=== PATIENT | female | born 1960 | race Caucasian/White ===

== ENCOUNTER 2018-08-22 14:04 | Outpatient (CLI) | payer OTHER ==
--- NOTE | 2018-08-23 03:22 | XRAY Report ---
Reason: NONSPECIFIC REACTION TO TUBERCULIN W/O ACTIVE TB Procedure Date: 08/22/2018 Accession Number: [id number] / [id number] Procedure: XR - Chest 2 View X-Ray CPT Code: 18318 FULL RESULT: EXAM: CHEST RADIOGRAPHY EXAM DATE: 08/22/2018 02:22 PM. CLINICAL HISTORY: NONSPECIFIC REACTION TO TUBERCULIN W/O ACTIVE TB. COMPARISON: None. TECHNIQUE: 2 views. FINDINGS: Lungs/Pleura: No focal opacities evident. No pleural effusion. No pneumothorax. Normal volumes. Mediastinum: Heart and mediastinal contours are unremarkable. Other: None. IMPRESSION: Normal 2-view chest radiography. No evidence of active tuberculosis. RADIA
== END 2018-08-22 14:05 | disposition home or self-care (01) ==
LOC: DI 14:04
PROVIDERS: ATTEND Family Medicine
DX: Z11.1 Encounter for screening for respiratory tuberculosis (principal); R76.11 Nonspecific reaction to tuberculin skin test without active tuberculosis
CPT/HCPCS: 71046

== ENCOUNTER 2019-06-13 15:11 | Emergency (ER) | payer OTHER ==
[2019-06-13 16:06] LABS: BILIRUBIN,URINE NEGATIVE (NEGATIVE); GLUCOSE, URINE (UA) NEGATIVE (NEGATIVE); KETONES,URINE (UA) TRACE mg/dL (NEGATIVE); LEUKOCYTE ESTERASE, URINE NEGATIVE (NEGATIVE); NITRITE,URINE NEGATIVE (NEGATIVE); OCCULT BLOOD,URINE NEGATIVE (NEGATIVE); PROTEIN,URINE NEGATIVE (NEGATIVE); UROBILINOGEN,URINE 0.2 (NORMAL) E.U./dL (NORMAL)
[2019-06-13 16:19] LABS: CLARITY,URINE CLEAR (CLEAR)
[2019-06-13] MEDS ORDERED: ONDANSETRON ODT 4 MG TABLET TL STA (17:10)
[2019-06-13] MEDS ORDERED: AZITHROMYCIN 250 MG TABLET PO STA (17:10)
[2019-06-13] MEDS ORDERED: cefTRIAXone 250 MG VIAL IM STA (17:11)
[2019-06-13] MEDS ORDERED: LIDOCAINE 1% 2 ML VIAL MC ONE (17:11)
--- NOTE | 2019-06-13 17:12 | ED Physician Documentation ---
History of Present Illness - Stated complaint Stated Complaint: FEMALE - Chief complaint Chief Complaint: General - History obtained from History obtained from: Patient - History of Present Illness Timing: How many days ago (2) Pain level max: 2 Pain level now: 1 - Additonal information Additional information: Patient is a 59-year-old female complains of vaginal pain today. 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 She states that she has had moxifloxacin x2 and is concerned that it is recurring. No changes in sexual partners. She is sexually active. States had some dysuria as well. Nothing makes it better or worse. Review of Systems Constitutional: denies: Fever, Chills Respiratory: denies: Cough GI: denies: Vomiting, Diarrhea Skin: denies: Rash Musculoskeletal: denies: Neck pain, Back pain Neurologic: denies: Headache PD PAST MEDICAL HISTORY - Past Medical History Past Medical History: No - Past Surgical History Past Surgical History: No - Present Medications Home Medications: Ambulatory Orders Medication Instructions Recorded Confirmed Moxifloxacin [Avelox] 400 mg PO 06/13/19 06/13/19 - Allergies Allergies/Adverse Reactions: Allergies Allergy/AdvReac Type Severity Reaction Status Date / Time No Known Drug Allergies Allergy Verified 06/13/19 15:31 - Living Situation Living Arrangement: reports: At home - Social History Does the pt smoke?: No Smoking Status: Never smoker Does the pt have substance abuse?: No - Family History Family history: reports: Non contributory PD ED PE NORMAL - Vitals Vital signs reviewed: Yes - General General: Alert and oriented X 3, No acute distress, Well developed/nourished - HEENT HEENT: Moist mucous membranes - Neck Neck: Supple, no meningeal sign - Cardiac Cardiac: RRR, Strong equal pulses - Respiratory Respiratory: No respiratory distress, Clear bilaterally - Abdomen Abdomen: Soft, Non tender, Non distended - Female Female : Discotheque Dancer present (Omaira COOK), Other (Mild discharge and erythema to the vaginal magdaleno.) - Derm Derm: Warm and dry - Extremities Extremities: No deformity - Neuro Neuro: Alert and oriented X 3 - Psych Psych: Normal mood, Normal affect Results - Vitals Vitals: Vital Signs - 24 hr 06/13/19 06/13/19 15:28 17:38 Temperature 36 C L Heart Rate 66 66 Respiratory 16 18 Rate Blood Pressure 137/82 H 146/94 H O2 Saturation 98 99 Oxygen O2 Source Room air - Labs Labs: Laboratory Tests 06/13/19 06/13/19 06/13/19 15:50 17:03 17:03 Urine Color YELLOW Urine Clarity CLEAR Urine pH 6.0 Ur Specific [place] <=1.005 Urine Protein NEGATIVE Urine Glucose (UA) NEGATIVE Urine Ketones TRACE Urine Occult Blood NEGATIVE Urine Nitrite NEGATIVE Urine Bilirubin NEGATIVE Urine Urobilinogen 0.2 (NORMAL) Ur Leukocyte Esterase NEGATIVE Ur Microscopic Review NOT INDICATED Urine Culture Comments NOT INDICATED C. glabrata (PCR) NEGATIVE C. krusei (PCR) NEGATIVE Lolita species DNA NEGATIVE Chlam trachomat DNA PCR NEGATIVE N.gonorrhoeae DNA (PCR) NEGATIVE T. 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 Given Rocephin and azithromycin. We will follow-up with your doctor for further care. She is well-appearing, nontoxic. Afebrile. No evidence of pelvic inflammatory disease. No evidence of tubo-ovarian abscess. Patient counseled regarding signs and symptoms for which I believe and urgent re-evaluation would be necessary. Patient with good understanding of and agreement to plan and is comfortable going home at this time This document was made in part using voice recognition software. While efforts are made to proofread this document, sound alike and grammatical errors may occur. Departure - Departure Disposition: 01 Home, Self Care Clinical Impression: Vaginitis Qualifiers: Chronicity: acute Qualified Code(s): N76.0 - Acute vaginitis Condition: Good Instructions: Mycoplasma Genital Follow-Up: Sabrina Del Rio CNM, SOCIAL INSURANCE SPECIALIST [Provider Admit Priv/Credential] - Within 1 week Comments: We will call you if your antibiotics need to be changed. The medications you were given tonight should be sufficient for treating your disease. The remainder of your testing should be back tomorrow. Return if you worsen. Follow-up with gynecology for further care. Forms: Activity restrictions Discharge Date/Time: 06/13/19 17:38
[2019-06-13 17:38] VITALS: BP 146/94
[2019-06-13 20:40] LABS: CANDIDA GROUP DNA NEGATIVE (NEGATIVE); CANDIDA KRUSEI DNA NEGATIVE (NEGATIVE); TRICHOMONAS VAGINALIS DNA NEGATIVE (NEGATIVE)
[2019-06-13 21:06] LABS: TRICHOMONAS VAGINALIS DNA NEGATIVE (NEGATIVE)
== END 2019-06-13 17:38 | disposition home or self-care (01) ==
LOC: ED 15:11
DX: N76.0 Acute vaginitis (principal)
CPT/HCPCS: 81003; 87481; 87491; 87591; 87661; 87801; 99283; 99284; A9270; Q0162; 81001; 87086

== ENCOUNTER 2019-08-21 12:15 | Emergency (ER) | payer OTHER ==
[2019-08-21 12:29] VITALS: BP 120/81
[2019-08-21] MEDS ORDERED: PROPARACAINE 0.5% OPHTH DROPS 15 ML RIGHTEYE STA (13:08)
--- NOTE | 2019-08-21 13:09 | ED Physician Documentation ---
PD HPI OPHTHO - Stated complaint Stated Complaint: RT EYE PX/SWELLING - Chief complaint Chief Complaint: Heent - History obtained from History obtained from: Patient - History of Present Illness Timing - onset: Today (This is a contact lens wearer who has had right eye pain and drainage with blurry vision since early this morning. The drainage is clear.) Review of Systems Constitutional: reports: Reviewed and negative Eyes: reports: Loss of vision, Decreased vision, Discharge, Irritation. 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 - Present Medications Home Medications: Ambulatory Orders Medication Instructions Recorded Confirmed Moxifloxacin [Avelox] 400 mg PO 06/13/19 06/13/19 levoFLOXacin 0.5% OPHTH DROPS 1 drops OPTH Q2H #1 bottle 08/21/19 [Quixin Ophth Drops] - Allergies Allergies/Adverse Reactions: Allergies Allergy/AdvReac Type Severity Reaction Status Date / Time No Known Drug Allergies Allergy Verified 08/21/19 12:25 - Social History Does the pt smoke?: No Smoking Status: Never smoker Does the pt drink ETOH?: Yes Does the pt have substance abuse?: No - Immunizations Immunizations are current?: Yes PD ED PE NORMAL - Vitals Vital signs reviewed: Yes - General General: Alert and oriented X 3, No acute distress - HEENT HEENT: PERRL, EOMI, Other (There is a tiny corneal ulcer just inferior to the visual axis on the right eye. No hypopyon. No positive Adonis sign.) - Neck Neck: Supple, no meningeal sign, No bony TTP - Neuro Neuro: Alert and oriented X 3, Normal speech Results - Vitals Vitals: Vital Signs - 24 hr 08/21/19 12:26 Temperature 36.9 C Heart Rate 84 Respiratory 18 Rate Blood Pressure 120/81 H O2 Saturation 96 Oxygen O2 Source Room air PD MEDICAL DECISION MAKING - Consults Consults: Consulted (name) (Iggy Hester, will see in f/u) Departure - Departure Disposition: 01 Home, Self Care Clinical Impression: Corneal ulcer of right eye Condition: Good Record reviewed to determine appropriate education?: Yes Instructions: ED Ulcer Cornea Follow-Up: Iggy Hester MD [Provider Admit Priv/Credential] - Tomorrow Prescriptions: levoFLOXacin 0.5% OPHTH DROPS [Quixin Ophth Drops] 1 drops OPTH Q2H #1 bottle Comments: Do not wear your contacts until it is is advised it is safe to do so by the eye doctor. You need to see the eye doctor no later than tomorrow. Call his office today for an appointment. You need to use the eyedrops every 2 hours even overnight. Forms: Activity restrictions Discharge Date/Time: 08/21/19 13:37
[2019-08-21] MEDS ORDERED: levoFLOXacin 0.5% OPHTH DROPS 5 ML RIGHTEYE STA (13:16)
== END 2019-08-21 13:37 | disposition home or self-care (01) ==
LOC: ED 12:15
DX: H16.001 Unspecified corneal ulcer, right eye (principal)
CPT/HCPCS: 99282; 99283; A9270; J3490

== ENCOUNTER 2019-08-26 16:30 | Emergency (ER) | payer OTHER ==
--- NOTE | 2019-08-26 16:42 | ED Physician Documentation ---
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 She is concerned because her blood pressure was up yesterday and today was 178/115 while at work. She does not have a history of hypertension and is not on any blood pressure medications. The reason she took her blood pressure was because she felt faint and her felt like her heart was racing. She experienced a "little bit" of right sided chest pain and felt short of breath as well as mildly dizzy. Is unclear whether the symptoms are still present. She denied any nausea or breaking out in a sweat. Denies history of cardiac disease or OK. No history of thyroid disorder or diabetes. He does not have peripheral edema and denies a headache. She did take an aspirin prior to arrival while she was at work, but does not know if it was a full aspirin or baby aspirin. She has not recently been ill. She is and denies use tobacco. Only minimal alcohol intake and denies use of any drugs. Her mother of Alzheimer's. Review of Systems Constitutional: denies: Fever Eyes: denies: Loss of vision Ears: denies: Ear pain Nose: denies: Rhinorrhea / runny nose Throat: denies: Sore throat Cardiac: reports: Chest pain / pressure, Palpitations. denies: Pedal edema Respiratory: reports: Dyspnea. denies: Cough GI: denies: Nausea, Vomiting : denies: Dysuria Skin: denies: Rash Neurologic: reports: Other (She felt mildly dizzy). 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 - Present Medications Home Medications: Ambulatory Orders Medication Instructions Recorded Confirmed Moxifloxacin [Avelox] 400 mg PO DAILY 06/13/19 06/13/19 levoFLOXacin 0.5% OPHTH DROPS 1 drops OPTH Q2H #1 bottle 08/21/19 08/26/19 [Quixin Ophth Drops] Aspirin 81 mg PO DAILY 08/26/19 08/26/19 LORazepam [Ativan] 0.5 mg PO Q8H PRN #6 tablet 08/26/19 Ondansetron Odt [Zofran] 4 mg TL Q6H PRN #10 tablet 08/26/19 - Allergies Allergies/Adverse Reactions: Allergies Allergy/AdvReac Type Severity Reaction Status Date / Time No Known Drug Allergies Allergy Verified 08/26/19 16:35 - Social History Does the pt smoke?: No Smoking Status: Never smoker Does the pt drink ETOH?: Yes Does the pt have substance abuse?: No - Immunizations Immunizations are current?: Yes - POLST Patient has POLST: No PD ED PE NORMAL - Vitals Vital signs reviewed: Yes - General General: Alert and oriented X 3, No acute distress, Well developed/nourished, Other (Patient appears anxious) - HEENT HEENT: Atraumatic, PERRL, Moist mucous membranes - Neck Neck: Supple, no meningeal sign, No adenopathy - Cardiac Cardiac: RRR, No murmur, Strong equal pulses - Respiratory Respiratory: No respiratory distress, Clear bilaterally - Abdomen Abdomen: Normal bowel sounds, Soft, Non tender, No organomegaly - Derm Derm: Normal color, Warm and dry, No rash - Extremities Extremities: No edema - Neuro Neuro: Alert and oriented X 3, job forwarder 2-12 intact, No motor deficit, No sensory deficit, Normal speech - Psych Psych: Other (Anxious) Results - Vitals Vitals: Oxygen O2 Source Room air - EKG (time done) 1643 Rate: Rate (enter#) (78) Rhythm: NSR Ischemia: Normal ST segments Other comments: Other comments (There is artifact limiting the interpretation slightly.) Compare to prior EKG: Old EKG unavailable - Labs Labs: Laboratory Tests 08/26/19 08/26/19 08/26/19 17:10 17:10 17:10 WBC 3.7 L RBC 4.13 L Hgb 13.6 Hct 40.6 MCV 98.3 MCH 32.9 H MCHC 33.5 RDW 13.2 Plt Count 185 MPV 8.7 Neut # (Auto) 2.5 Lymph # (Auto) 0.8 L [place] # (Auto) 0.4 Eos # (Auto) 0.0 Baso # (Auto) 0.1 Absolute Nucleated RBC 0.00 Nucleated RBC % 0.0 Sodium 136 Potassium 3.9 Chloride 101 Carbon Dioxide 23 Anion Gap 12.0 BUN 10 Creatinine 0.4 Estimated GFR (MDRD) 164 Glucose 114 H Calcium 9.6 Magnesium 1.9 Total Bilirubin 1.3 H AST 202 H ALT 115 H Alkaline Phosphatase 141 H Troponin I High Sens 4.2 Total Protein 7.4 Albumin 4.3 Globulin 3.1 Albumin/Globulin Ratio 1.4 Lipase 40 TSH 08/26/19 17:10 WBC RBC Hgb Hct MCV MCH MCHC RDW Plt Count MPV Neut # (Auto) Lymph # (Auto) [place] # (Auto) Eos # (Auto) Baso # (Auto) Absolute Nucleated RBC Nucleated RBC % Sodium Potassium Chloride Carbon Dioxide Anion Gap BUN Creatinine Estimated GFR (MDRD) Glucose Calcium Magnesium Total Bilirubin AST ALT Alkaline Phosphatase Troponin I High Sens Total Protein Albumin Globulin Albumin/Globulin Ratio Lipase TSH 2.81 - Rads (name of study) cxr Radiology: EMP read contemporaneously, See rad report (neg acute) ct abd Radiology: See rad report PD MEDICAL DECISION MAKING - ED course Complexity details: reviewed old records, reviewed results, re-evaluated patient, d/w patient ED course: Patient received Ativan 0.5 mg IV. Her blood pressure did improve but Still over 140/90. She is feeling a little better. Her liver enzymes came back elevated even with an elevated total bilirubin at 1.3 and she looks just mildly bloated and distended. She ate approximately 4 hours ago and has been drinking liquids since then so I elected to order a CT scan of the abdomen and pelvis with IV contrast pain. The patient was in agreement with the CAT scan. She reports that she is been feeling nauseous to the point of vomiting 2-3 times a week recently. Her CT did not show any clear indication of gallstones or other intra-abdominal pathology. I think she needs to have an outpatient ultrasound performed and this was discussed with her. She plans to follow-up with her primary care provider regarding that. She is feeling better tonight and is discharged home for outpatient management. Departure - Departure Disposition: 01 Home, Self Care Clinical Impression: RUQ abdominal pain, Elevated blood pressure reading Vomiting Qualifiers: Vomiting type: unspecified Vomiting Intractability: non-intractable Nausea presence: unspecified Qualified Code(s): R11.10 - Vomiting, unspecified Condition: Good Instructions: ED Abdominal Pain Unkn Cause Follow-Up: Christo Romero MD [Primary Care Provider] - Prescriptions: LORazepam [Ativan] 0.5 mg PO Q8H PRN #6 tablet PRN Reason: Anxiety Ondansetron Odt [Zofran] 4 mg TL Q6H PRN #10 tablet PRN Reason: Nausea / Vomiting Comments: You have an outpatient order for an ultrasound. You will need to call and schedule that and hopefully you can get it done before you see your primary care provider on Tuesday. Give a prescription for Zofran to use if you needed for nausea or vomiting. I have provided you with 6 Ativan tablets in case you are feeling anxious. Continue to monitor your blood pressure and keep a log to take with you to your primary care provider. Return if you have increasing abdominal pain, vomiting and cannot keep anything down, you develop a fever or other problems arise. Forms: Activity restrictions Discharge Date/Time: 08/26/19 20:59
[2019-08-26] MEDS ORDERED: LORazepam 2 MG/ML VIAL IVP STA (17:07)
[2019-08-26] MEDS ORDERED: ASPIRIN CHEW 81 MG TABLET PO STA (17:10)
[2019-08-26 17:20] LABS: BASOPHILS # (AUTO) 0.1 10^3/uL (0.0-0.1); BASOPHILS % (AUTO) 1.4 %; EOSINOPHILS % (AUTO) 0.8 %; HGB - HEMOGLOBIN 13.6 g/dL (12.0-16.0); LYMPHOCYTES # (AUTO) 0.8 10^3/uL (1.5-3.5); LYMPHOCYTES % (AUTO) 21.5 %; MEAN CORPUSCULAR HEMOGLOBIN 32.9 pg (27.0-31.0); MEAN CORPUSCULAR HGB CONC 33.5 g/dL (32.0-36.0); MEAN CORPUSCULAR VOLUME 98.3 fL (81.0-99.0); MEAN PLATELET VOLUME 8.7 fL (7.9-10.8); MONOCYTES # (AUTO) 0.4 10^3/uL (0.0-1.0); MONOCYTES % (AUTO) 9.5 %; NEUTROPHILS # (AUTO) 2.5 10^3/uL (1.5-6.6); NEUTROPHILS % (AUTO) 66.5 %; PLT - PLATELET COUNT 185 10^3/uL (130-450); RED BLOOD COUNT 4.13 10^6/uL (4.20-5.40); RED CELL DISTRIBUTION WIDTH 13.2 % (12.0-15.0); WHITE BLOOD COUNT 3.7 x10^3/uL (4.8-10.8)
[2019-08-26 17:29] LABS: ALBUMIN 4.3 g/dL (3.2-5.5); ALBUMIN/GLOBULIN RATIO 1.4 (1.0-2.2); BILIRUBIN,TOTAL 1.3 mg/dL (0.2-1.0); CALCIUM 9.6 mg/dL (8.5-10.3); CREATININE 0.4 mg/dL (0.4-1.0); MAGNESIUM 1.9 mg/dL (1.7-2.8); TOTAL PROTEIN 7.4 g/dL (6.7-8.2)
--- NOTE | 2019-08-26 17:49 | XRAY Report ---
Reason: chest pain Procedure Date: 08/26/2019 Accession Number: [id number] / [id number] Procedure: XR - Chest 1 View X-Ray CPT Code: 58644 FULL RESULT: EXAM: CHEST RADIOGRAPHY EXAM DATE: 08/26/2019 05:22 PM. CLINICAL HISTORY: Chest pain. COMPARISON: CHEST 2 VIEW 08/22/2018 2:12 PM. TECHNIQUE: 1 view. FINDINGS: Lungs/Pleura: Somewhat ill-defined opacity in the right lower lung field measuring up to 1.5 cm in diameter possibly representing summation of shadows. However, developing nodule cannot be completely excluded. No infiltrates. No pleural effusions or pneumothorax. Mediastinum: Within exam limitations, the cardiomediastinal contour is normal. Other: None. IMPRESSION: 1. No acute cardiopulmonary process identified radiographically. 2. Somewhat ill-defined opacity in the right lower lung field measuring up to 1.5 cm in diameter possibly representing summation of shadows. However, developing nodule cannot be completely excluded. Consider further evaluation with a dedicated chest CT, not necessarily on an emergent basis. [facility]
[2019-08-26] MEDS ORDERED: IOVERSOL 320 100 ML VIAL IVP ONE ×2 (18:47→19:01)
[2019-08-26] MEDS ORDERED: ONDANSETRON 4 MG/2 ML VIAL IVP STA (19:22)
--- NOTE | 2019-08-26 19:29 | CT Report ---
Reason: abd pain with elevated liver enzymes Procedure Date: 08/26/2019 Accession Number: [id number] / [id number] Procedure: CT - Abdomen/Pelvis W CPT Code: FULL RESULT: EXAM: CT ABDOMEN AND PELVIS EXAM DATE: 08/26/2019 07:00 PM. CLINICAL HISTORY: Abdomen pain with elevated liver enzymes. COMPARISONS: None. TECHNIQUE: Routine helical CT imaging was performed through the abdomen and pelvis. IV contrast: OPTI 320 90ML. Enteric contrast: No. Reconstructions: Coronal and sagittal. In accordance with CT protocol optimization, one or more of the following dose reduction techniques were utilized for this exam: automated exposure control, adjustment of mA and/or KV based on patient size, or use of iterative reconstructive technique. FINDINGS: Lung Bases: Unremarkable. Liver: Fatty liver. Gallbladder/Bile Ducts: Unremarkable. Spleen: Normal. Pancreas: Normal. Adrenal Glands: Normal. Kidneys: Small 6 mm hypodense mass lower pole right kidney not fully characterized, is probable renal cyst. No hydronephrosis. Peritoneal Cavity/Bowel: Normal appendix. No acute bowel findings are seen. No free fluid or free air. Small fat-containing umbilical hernia measuring 1.7 cm. Pelvic Organs: Normal. The bladder and visualized pelvic organs are within normal limits. Status post hysterectomy. Vasculature: No acute findings. Bones: No acute bone findings. IMPRESSION: 1. No acute findings. 2. Normal appendix. 3. Small fat-containing umbilical hernia. 4. Fatty liver. [facility]
[2019-08-26 20:57] VITALS: BP 109/90
== END 2019-08-26 20:59 | disposition home or self-care (01) ==
LOC: ED 16:30
DX: R10.11 Right upper quadrant pain (principal); R03.0 Elevated blood-pressure reading, without diagnosis of hypertension; R11.2 Nausea with vomiting, unspecified; R74.8 Abnormal levels of other serum enzymes; K42.9 Umbilical hernia without obstruction or gangrene; K76.0 Fatty (change of) liver, not elsewhere classified; F41.9 Anxiety disorder, unspecified
CPT/HCPCS: 36415; 71045; 74177; 83690; 83735; 84484; 93005; 96374; 96375; 99284; A9270; J2060; Q9967; 80053; 84443; 85025

== ENCOUNTER 2019-08-30 16:38 | Outpatient (CLI) | payer OTHER ==
--- NOTE | 2019-08-30 20:20 | Ultrasound Report ---
Reason: RUQ PAIN, INCREASED LIVER ENZYMES Procedure Date: 08/30/2019 Accession Number: [id number] / [id number] Procedure: US - Abdomen Limited CPT Code: Final Report FULL RESULT: EXAM: ABDOMEN ULTRASOUND LIMITED, RUQ EXAM DATE: 08/30/2019 05:27 PM. CLINICAL HISTORY: RUQ PAIN, INCREASED LIVER ENZYMES. COMPARISON: ABDOMEN/PELVIS W/ 08/26/2019 6:52 PM. TECHNIQUE: Real-time scanning was performed with static images obtained. FINDINGS: Liver: Normal in size, but diffusely increased in echogenicity compatible with underlying fatty infiltration. 13.1 cm. Main portal vein flow: Hepatopetal. Posterior aspect of the right lobe, there is a hypoechoic focus measuring approximately 1.8 x 1.6 x 1.2 cm. In comparing with the CT scan from 08/26/2019, no corresponding masses are identified. Gallbladder: Normal. No stones, wall thickening, or sonographic Quiroz's sign. Biliary System: CBD measures 4 mm. No intrahepatic or extrahepatic ductal dilatation. Other: Right kidney is normal in size measuring 10.6 cm in length. Slightly more focal hypoechoic region along the medial aspect measures 1.3 x 1.7 cm. A corresponding abnormality cannot be seen on the recent CT scan. On the CT scan there is only a 5 mm cyst in the lower pole. Limited images of the pancreas are unremarkable in appearance. IMPRESSION: 1. Fatty liver. A 1.8 cm hypoechoic focus in the posterior right lobe may be artifact, as there is not a corresponding abnormality on the recent CT scan from 08/26/2019. Underlying fatty infiltration can make evaluation and identification of focal liver masses difficult. If desired, could perform six-month follow-up ultrasound specifically evaluating this region, or could consider a liver MRI. 2. Normal gallbladder without any gallstones. [facility]
== END 2019-08-30 16:39 | disposition home or self-care (01) ==
LOC: DI 16:38
PROVIDERS: ATTEND Emergency Medicine
DX: K76.0 Fatty (change of) liver, not elsewhere classified (principal); R10.11 Right upper quadrant pain
CPT/HCPCS: 76705

== ENCOUNTER 2020-08-26 07:41 | Inpatient (IN) | payer OTHER ==
[2020-08-26] MEDS ORDERED: ONDANSETRON 4 MG/2 ML VIAL IVP STA (08:10)
[2020-08-26] MEDS ORDERED: SODIUM CHLORIDE 0.9% 1,000 ML IV STA (08:10)
[2020-08-26] MEDS ORDERED: PANTOPRAZOLE 40 MG VIAL IVP STA (08:12)
--- NOTE | 2020-08-26 08:24 | ED Physician Documentation ---
PD HPI GI BLEED - Stated complaint Stated Complaint: FEMALE - Chief complaint Chief Complaint: Abd Pain - History obtained from History obtained from: Patient - History of Present Illness Timing - onset: Enter time (1100), Yesterday Timing - duration: Days (1) Timing - details: Gradual onset, Still present Associated symptoms: Vomiting, Coffee ground emesis, Hematemesis, BRBPR, Maroon stool, Black/tarry stool Contributing factors: NSAID use Improved by: Vomiting Similar symptoms before: Has not had sx before Recently seen: Not recently seen - Additional information Additional information: Previously well 60-year-old female reports that she began to have some nausea yesterday morning about 11:00 in the morning this was followed by vomiting of some blood as well as some bloody bowel movement. She states that she took some Aleve for her back pain yesterday and that she takes this on a regular basis. Today she has had output of jet black stool as well as vomiting of coffee-ground emesis. She has generalized abdominal pain. She has not had these symptoms previously.She has had 1 prior surgery a hysterectomy for bleeding. Review of Systems Constitutional: denies: Fever Eyes: denies: Decreased vision Ears: denies: Ear pain Nose: denies: Congestion Throat: denies: Sore throat Cardiac: denies: Chest pain / pressure, Palpitations Respiratory: denies: Dyspnea, Cough GI: reports: Abdominal Pain, Nausea, Vomiting, Hematemesis, Bloody / black stool : denies: Dysuria, Frequency Skin: denies: Rash Musculoskeletal: denies: Neck pain, Back pain, Extremity pain Neurologic: denies: Generalized weakness, Focal weakness, Numbness PD PAST MEDICAL HISTORY - Past Medical History Cardiovascular: None Respiratory: None Neuro: None Endocrine/Autoimmune: None GI: None VOCATIONAL NURSING INSTRUCTOR: None : None HEENT: None Psych: None Musculoskeletal: None Derm: None - Past Surgical History Past Surgical History: No /VOCATIONAL NURSING INSTRUCTOR: Hysterectomy - Present Medications Home Medications: Ambulatory Orders Medication Instructions Recorded Confirmed Moxifloxacin [Avelox] 400 mg PO DAILY 06/13/19 06/13/19 levoFLOXacin 0.5% OPHTH DROPS 1 drops OPTH Q2H #1 bottle 08/21/19 08/26/19 [Quixin Ophth Drops] Aspirin 81 mg PO DAILY 08/26/19 08/26/19 LORazepam [Ativan] 0.5 mg PO Q8H PRN #6 tablet 08/26/19 Ondansetron Odt [Zofran] 4 mg TL Q6H PRN #10 tablet 08/26/19 - Allergies Allergies/Adverse Reactions: Allergies Allergy/AdvReac Type Severity Reaction Status Date / Time No Known Drug Allergies Allergy Verified 08/26/20 07:49 - Social History Does the pt smoke?: No Smoking Status: Never smoker Does the pt drink ETOH?: Yes Does the pt have substance abuse?: No - Immunizations Immunizations are current?: Yes - POLST Patient has POLST: No PD ED PE NORMAL - Vitals Vital signs reviewed: Yes (Tachycardic and hypertensive) - General General: Alert and oriented X 3, No acute distress, Well developed/nourished - HEENT HEENT: Atraumatic, PERRL, EOMI - Neck Neck: Supple, no meningeal sign - Cardiac Cardiac: No murmur, Other (Tachycardic to 110) - Respiratory Respiratory: No respiratory distress, Clear bilaterally - Abdomen Abdomen: Normal bowel sounds, Soft, Other (Mild tenderness without guarding or rebound. The tenderness is generalized.) - Back Back: No CVA TTP, No spinal TTP - Derm Derm: Normal color, Warm and dry, No rash - Extremities Extremities: No deformity, No edema - Neuro Neuro: Alert and oriented X 3, rehab office coordinator 2-12 intact, No motor deficit, No sensory deficit, Normal speech Eye Opening: Spontaneous Motor: Obeys Commands Verbal: Oriented GCS Score: 15 - Psych Psych: Normal mood, Normal affect Results - Vitals Vitals: Vital Signs - 24 hr 08/26/20 08/26/20 08/26/20 07:44 08:28 09:23 Temperature 36.8 C Heart Rate 114 H 104 H 91 Respiratory 16 16 16 Rate Blood Pressure 138/81 H 138/80 H 126/86 H O2 Saturation 98 99 100 Oxygen O2 Source Room air - Labs Labs: Laboratory Tests 08/26/20 08/26/20 08/26/20 08:05 08:05 08:05 WBC 9.6 RBC 3.75 L Hgb 11.7 L Hct 36.5 L MCV 97.3 MCH 31.2 H MCHC 32.1 RDW 14.2 Plt Count 213 MPV 9.4 Neut # (Auto) 7.6 H Lymph # (Auto) 1.1 L [facility] # (Auto) 0.8 Eos # (Auto) 0.0 Baso # (Auto) 0.1 Absolute Nucleated RBC 0.00 Nucleated RBC % 0.0 Sodium 137 Potassium 3.7 Chloride 105 Carbon Dioxide 21 Anion Gap 11.0 BUN 21 H Creatinine 0.7 Estimated GFR (MDRD) 86 L Glucose 135 H Calcium 9.0 Total Bilirubin 0.9 AST 35 ALT 39 Alkaline Phosphatase 128 H Total Protein 6.2 L Albumin 3.7 Globulin 2.5 Albumin/Globulin Ratio 1.5 Lipase 37 Blood Type O POSITIVE Antibody Screen NEGATIVE PD MEDICAL DECISION MAKING - ED course Complexity details: reviewed old records, reviewed results, re-evaluated patient, considered differential, d/w patient ED course: Previously well 60-year-old female has developed GI bleeding presumed to be secondary to the use of Aleve for low back pain. The patient has dropped her hemoglobin about 2 g from her baseline she is nowhere near a transfusion threshold but she continues to bleed. She has a bloody bowel movement (maroon stool with red blood as well) here in the emergency department and the surgeon i s consulted in the case to consider admission to observation to assure resolution of bleeding. He recommends admission to observation and Dr. Doherty is consulted in the case. Departure - Departure Disposition: ED Place in Observation Clinical Impression: GI bleed due to NSAIDs Condition: Stable
[2020-08-26 08:36] LABS: BASOPHILS # (AUTO) 0.1 10^3/uL (0.0-0.1); BASOPHILS % (AUTO) 0.6 %; EOSINOPHILS % (AUTO) 0.3 %; HGB - HEMOGLOBIN 11.7 g/dL (12.0-16.0); LYMPHOCYTES # (AUTO) 1.1 10^3/uL (1.5-3.5); LYMPHOCYTES % (AUTO) 11.8 %; MEAN CORPUSCULAR HEMOGLOBIN 31.2 pg (27.0-31.0); MEAN CORPUSCULAR HGB CONC 32.1 g/dL (32.0-36.0); MEAN CORPUSCULAR VOLUME 97.3 fL (81.0-99.0); MEAN PLATELET VOLUME 9.4 fL (7.9-10.8); MONOCYTES # (AUTO) 0.8 10^3/uL (0.0-1.0); MONOCYTES % (AUTO) 7.8 %; NEUTROPHILS # (AUTO) 7.6 10^3/uL (1.5-6.6); NEUTROPHILS % (AUTO) 79.1 %; PLT - PLATELET COUNT 213 10^3/uL (130-450); RED BLOOD COUNT 3.75 10^6/uL (4.20-5.40); RED CELL DISTRIBUTION WIDTH 14.2 % (12.0-15.0); WHITE BLOOD COUNT 9.6 x10^3/uL (4.8-10.8)
[2020-08-26 08:53] LABS: ALBUMIN 3.7 g/dL (3.2-5.5); ALBUMIN/GLOBULIN RATIO 1.5 (1.0-2.2); BILIRUBIN,TOTAL 0.9 mg/dL (0.2-1.0); CREATININE 0.7 mg/dL (0.4-1.0); TOTAL PROTEIN 6.2 g/dL (6.7-8.2)
[2020-08-26 09:26] LABS: BILIRUBIN,URINE NEGATIVE (NEGATIVE); GLUCOSE, URINE (UA) NEGATIVE (NEGATIVE); KETONES,URINE (UA) NEGATIVE (NEGATIVE); LEUKOCYTE ESTERASE, URINE NEGATIVE (NEGATIVE); NITRITE,URINE NEGATIVE (NEGATIVE); OCCULT BLOOD,URINE NEGATIVE (NEGATIVE); PROTEIN,URINE NEGATIVE (NEGATIVE); UROBILINOGEN,URINE 0.2 (NORMAL) E.U./dL (NORMAL)
[2020-08-26] MEDS ORDERED: MIDAZOLAM 2 MG/2 ML VIAL IVP ONE (09:34)
[2020-08-26] MEDS ORDERED: GLYCOPYRROLATE 1 MG/5 ML VIAL IVP ONE (09:34)
[2020-08-26] MEDS ORDERED: PROPOFOL 200 MG/20 ML VIAL IVP ONE (09:34)
[2020-08-26] MEDS ORDERED: KETAMINE 500 MG/10 ML VIAL IVP ONE (09:34)
--- NOTE | 2020-08-26 09:36 | HISTORY & PHYSICAL EXAMINATION ---
Chief Complaint - Chief Complaint Chief Complaint: Coffee ground emesis History of Present Illness - Admitted From Admitted From:: Home - History Obtained From Records Reviewed: Yes History obtained from: Patient, ER Physician, EMR - History of Present Illness HPI Comment/Other: This is a 60-year-old female with a past medical history significant for panic attacks and chronic back pain who presents today after she had coffee ground emesis that began yesterday morning. She states this persisted throughout the day and today she sought medical attention. She noted her stool yesterday was dark and tarry although today her stool was more maroon-colored. She reports associated epigastric pain and heartburn that began after the hematemesis. No chest pain or dyspnea. She denies any fevers but has felt some chills. She feels like she has become more lightheaded and dizzy today. She has been taking Aleve almost every other day for the past year for chronic back pain. Denies any other NSAID use. She did try a baby aspirin today to help alleviate her back pain. She is not on any anticoagulation. She believes she may have had a colonoscopy or endoscopy many years ago but she cannot recall. She also believes she may have had a similar bleeding episode in her early 40s. She reports taking 4 alcoholic beverages a week. No prior history of abdominal surgeries. In the emergency department, she was found to be afebrile in the picture of 36.8 C. Her heart is 114. Her blood pressure is 138/81. She is not tachypneic and saturating well on room air. Her initial hemoglobin was 11.7. Her labs otherwise unremarkable. The emergency department provider spoke with the on- call surgeon who recommended observation for endoscopy. Medicine was then consulted for admission. She did receive Protonix IV in the emergency department. 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 Living arrangement: At home Living Situation: With spouse/s.o. Social History Notes: She lives at home with her . 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 She does smoke a couple cigarettes a day for the past 10 years but reports quitting 1 week ago. She drinks 4 alcoholic beverages a week. - POLST Patient has POLST: No Meds/Allgy - Home Medications Home Medications: Ambulatory Orders Medication Instructions Recorded Confirmed Acetaminophen [Tylenol] 325 mg PO QID PRN 08/26/20 08/26/20 Gabapentin [Neurontin] 100 - 200 mg PO QPM 08/26/20 08/26/20 PARoxetine HCL [Paroxetine HCl] 40 mg PO DAILY 08/26/20 08/26/20 Trazodone HCl 100 mg PO QPM 08/26/20 08/26/20 - Allergies Allergies/Adverse Reactions: Allergies Allergy/AdvReac Type Severity Reaction Status Date / Time No Known Drug Allergies Allergy Verified 08/26/20 07:49 Review of Systems - Constitutional Constitutional: reports: Fatigue, Chills, Malaise, Weakness, Poor appetite. denies: Fever - Cardiovascular Cariovascular: reports: Lightheadedness. denies: Chest pain, Edema, Exertional dyspnea, Decr. exercise tolerance - Respiratory Respiratory: denies: SOB at rest, SOB with exertion - Gastrointestinal Gastrointestinal: reports: Abdominal pain, Black stools, Bloody stools, Nausea, Vomiting, Coffee grounds emesis, Reflux/heartburn, Poor appetite - Genitourinary Genitourinary: denies: Dysuria, Frequency, Urgency, Hematuria - Musculoskeletal Musculoskeletal: reports: Back pain - Integumentary Integumentary: denies: Rash - Neurological Neurological: reports: General weakness, Dizziness. denies: Focal weakness - Hematologic/Lymphatic Hematologic/Lymphatic: denies: Anemia, Bruising, Lymphadenopathy - All Other Systems All Other Systems: reports: Reviewed and negative Prior Level of Functionality: She is independent with her ADLs. Exam - Vital Signs Reviewed Vital Signs: Yes Vital Signs: Vital Signs x48h Temp Pulse Resp BP Pulse Ox 08/26/20 09:23 91 16 126/86 H 100 08/26/20 08:28 104 H 16 138/80 H 99 08/26/20 07:44 36.8 C 114 H 16 138/81 H 98 - Physical Exam General Appearance: positive: No acute distress, Alert Eyes Bilateral: positive: Normal inspection, Conjunctivae nml ENT: positive: ENT inspection nml Neck: positive: Nml inspection Respiratory: positive: No respiratory distress. negative: Wheezes, Rales Cardiovascular: positive: Regular rate & rhythm, No murmur. negative: Tachycardia, Bradycardia, Systolic murmur Abdomen: positive: No distention, Tenderness (Mild diffuse tenderness.). negative: Non-tender, Guarding, Rebound, Hepatomegaly Skin: positive: No rash, Warm, Dry Extremities: positive: Full ROM, No pedal edema Neurologic/Psychiatric: positive: Oriented x3, Motor nml. negative: Disoriented to person, Disoriented to place, Disoriented to time Conclusion/Plan - Problem List (1) Upper GI bleed Conclusion/Plan: Suspect this is an upper GI bleeding likely due to the use of NSAIDs. Her hemoglobin is slightly decreased at 11.7. This time, we will make her n.p.o. for EGD today. Protonix 40 mg IV twice daily. Avoid NSAIDs. IV hydration lac tated Ringer's. Check hemoglobin every 8 hours. Appreciate general surgery input. (2) Panic attacks Conclusion/Plan: We will continue her home Paxil. (3) Chronic back pain Conclusion/Plan: Chronic and stable. We will avoid all NSAIDs. Continue home gabapentin. Tylenol as needed. Qualifiers: Back pain location: low back pain - Lab Results Lab results reviewed: Yes Fish Bones: 08/26/20 08:05 08/26/20 08:05 Core Measures - Anticipated LOS I expect patient to be DC'd or transferred within 96 hours.: Yes - Issues Hospital Issues and Management Plan: 60-year-old female who presents with hematemesis likely due to upper GI bleed from the use of NSAIDs. We will place in observation for endoscopy today genera l surgery. Trend hemoglobin. - DVT/VTE - Prophylaxis VTE/DVT Device ordered at admit?: Yes VTE/DVT Prophylaxis med ordered at admit?: No Not Ordered - Medical Reason: Contraindicated
[2020-08-26 09:57] LABS: CLARITY,URINE CLEAR (CLEAR)
[2020-08-26 10:45] LABS: INR 1.1 (0.8-1.2); PT - PROTHROMBIN TIME 12.3 secs (9.9-12.6)
[2020-08-26] MEDS: LACTATED RINGERS 1,000 ML IV SCH ×2 (10:50→18:44)
[2020-08-26] MEDS: SODIUM CHLORIDE FLUSH 0.9% 10 ML SYRINGE IVP PRN (10:50)
[2020-08-26] MEDS: ACETAMINOPHEN 325 MG TABLET PO PRN ×3 (10:50→18:52)
--- NOTE | 2020-08-26 11:21 | PHARMACY PROGRESS NOTE ---
- Best Possible Medication History Admit Date and Time: 08/26/20 0933 Processed by: Pharmacy Medication History completed: Yes Patient Interview: Completed Secondary Source(s): Pharmacy records (PATIENT INTERVIEWED BY REFRIGERATOR GLAZIER. PATIENT ABLE TO CONFIRM HOME MEDICATIONS ), Insurance records As the person ultimately responsible for medication therapy, providers are able to order a medication from an existing home medication list in [facility] via the "Reconcile Routine" prior to Confirmation of that medication by supportive employment case manager. Such practice is discouraged except when the physician, in their clinical judgment, deems that a medical need exists for a medication without regard to previous use.
--- NOTE | 2020-08-26 13:01 | HISTORY & PHYSICAL EXAMINATION ---
Chief Complaint - Chief Complaint Chief Complaint: nausea and vomiting followed by bloody bms GI Bleed Admit Template - Admitted From Admitted from: ED - History Obtained From History obtained from: Patient Exam limitations: No limitations - History of Present Illness Severity at the worst: reports: Moderate Bleeding quality: reports: Black, tarry stool, Bandar blood stool, Coffee-ground emesis Context-bleeding started w/: reports: Spontaneous Timing: reports: Gradual onset Duration: reports: Days: (1) Improved with: reports: Nothing HPI Comment/Other: She developed nausea yesterday followed by coffee ground emesis. No recent emesis. She has had dark stool and more recently bloody stool. No intestinal or digestive problems until yesterday. She has been taking aspirin and aleve. No colon cancer screening for 20 years. PMH/PSH - Past Medical History Cardiovascular: positive: None Respiratory: positive: None Neuro: positive: None Endocrine/Autoimmune: positive: None GI: positive: None SMALL ANIMAL VETERINARIAN: positive: None : positive: None HEENT: positive: None Psych: positive: None Musculoskeletal: positive: None Derm: positive: None MRSA Hx?: No - Past Surgical History /SMALL ANIMAL VETERINARIAN: positive: Hysterectomy Social & Family Hx - Social History Does the pt smoke?: No Smoking Status: Smoker current status unk Does the pt drink ETOH?: Yes Does the pt have substance abuse?: No - POLST Patient has POLST: No Meds/Allgy - Home Medications Home Medications: Ambulatory Orders Medication Instructions Recorded Confirmed Acetaminophen [Tylenol] 325 mg PO QID PRN 08/26/20 08/26/20 Gabapentin [Neurontin] 100 - 200 mg PO QPM 08/26/20 08/26/20 PARoxetine HCL [Paroxetine HCl] 40 mg PO DAILY 08/26/20 08/26/20 Trazodone HCl 100 mg PO QPM 08/26/20 08/26/20 - Allergies Allergies/Adverse Reactions: Allergies Allergy/AdvReac Type Severity Reaction Status Date / Time No Known Drug Allergies Allergy Verified 08/26/20 07:49 Review of Systems - Constitutional Constitutional: reports: Fatigue (10 pt ros as above otherwise unremarkable) Exam - Vital Signs Reviewed Vital Signs: Yes Vital Signs: Vital Signs x48h Temp Pulse Resp BP Pulse Ox 08/26/20 09:23 91 16 126/86 H 100 08/26/20 08:28 104 H 16 138/80 H 99 08/26/20 07:44 36.8 C 114 H 16 138/81 H 98 - Physical Exam General Appearance: positive: No acute distress, Alert Eyes Bilateral: positive: Normal inspection, PERRL ENT: positive: No signs of dehydration Neck: positive: Trachea midline Respiratory: positive: No respiratory distress Abdomen: positive: Non-tender, No distention Neurologic/Psychiatric: positive: Oriented x3 Results - Lab Results Fish Bones: 08/26/20 08:05 08/26/20 08:05 Other Lab Results: Lab Results x24hrs 08/26/20 08/26/20 08/26/20 Range/Units 09:15 08:05 08:05 WBC (4.8-10.8) x10^3/uL RBC (4.20-5.40) 10^6/uL Hgb (12.0-16.0) g/dL Hct (37.0-47.0) % MCV (81.0-99.0) fL MCH (27.0-31.0) pg MCHC (32.0-36.0) g/dL RDW (12.0-15.0) % Plt Count (130-450) 10^3/uL MPV (7.9-10.8) fL Neut # (Auto) (1.5-6.6) 10^3/uL Lymph # (Auto) (1.5-3.5) 10^3/uL Edwards # (Auto) (0.0-1.0) 10^3/uL Eos # (Auto) (0.0-0.7) 10^3/uL Baso # (Auto) (0.0-0.1) 10^3/uL Absolute Nucleated RBC x10^3/uL Nucleated RBC % /100WBC PT 12.3 (9.9-12.6) secs INR 1.1 (0.8-1.2) Sodium (135-145) mmol/L Potassium (3.5-5.0) mmol/L Chloride (101-111) mmol/L Carbon Dioxide (21-32) mmol/L Anion Gap (6-13) BUN (6-20) mg/dL Creatinine (0.4-1.0) mg/dL Estimated GFR (MDRD) (>89) Glucose (70-100) mg/dL Calcium (8.5-10.3) mg/dL Total Bilirubin (0.2-1.0) mg/dL AST (10-42) IU/L ALT (10-60) IU/L Alkaline Phosphatase (42-121) IU/L Total Protein (6.7-8.2) g/dL Albumin (3.2-5.5) g/dL Globulin (2.1-4.2) g/dL Albumin/Globulin Ratio (1.0-2.2) Lipase (22-51) U/L Urine Color LIGHT YELLOW Urine Clarity CLEAR (CLEAR) Urine pH 6.0 (5.0-7.5) PH Ur Specific Barlow <=1.005 (1.002-1.030) Urine Protein NEGATIVE (NEGATIVE) mg/dL Urine Glucose (UA) NEGATIVE (NEGATIVE) mg/dL Urine Ketones NEGATIVE (NEGATIVE) mg/dL Urine Occult Blood NEGATIVE (NEGATIVE) Urine Nitrite NEGATIVE (NEGATIVE) Urine Bilirubin NEGATIVE (NEGATIVE) Urine Urobilinogen 0.2 (NORMAL) (NORMAL) E.U./dL Ur Leukocyte Esterase NEGATIVE (NEGATIVE) Ur Microscopic Review NOT INDICATED Urine Culture Comments NOT INDICATED Blood Type O POSITIVE Antibody Screen NEGATIVE 08/26/20 08/26/20 Range/Units 08:05 08:05 WBC 9.6 (4.8-10.8) x10^3/uL RBC 3.75 L (4.20-5.40) 10^6/uL Hgb 11.7 L (12.0-16.0) g/dL Hct 36.5 L (37.0-47.0) % MCV 97.3 (81.0-99.0) fL MCH 31.2 H (27.0-31.0) pg MCHC 32.1 (32.0-36.0) g/dL RDW 14.2 (12.0-15.0) % Plt Count 213 (130-450) 10^3/uL MPV 9.4 (7.9-10.8) fL Neut # (Auto) 7.6 H (1.5-6.6) 10^3/uL Lymph # (Auto) 1.1 L (1.5-3.5) 10^3/uL Edwards # (Auto) 0.8 (0.0-1.0) 10^3/uL Eos # (Auto) 0.0 (0.0-0.7) 10^3/uL Baso # (Auto) 0.1 (0.0-0.1) 10^3/uL Absolute Nucleated RBC 0.00 x10^3/uL Nucleated RBC % 0.0 /100WBC PT (9.9-12.6) secs INR (0.8-1.2) Sodium 137 (135-145) mmol/L Potassium 3.7 (3.5-5.0) mmol/L Chloride 105 (101-111) mmol/L Carbon Dioxide 21 (21-32) mmol/L Anion Gap 11.0 (6-13) BUN 21 H (6-20) mg/dL Creatinine 0.7 (0.4-1.0) mg/dL Estimated GFR (MDRD) 86 L (>89) Glucose 135 H (70-100) mg/dL Calcium 9.0 (8.5-10.3) mg/dL Total Bilirubin 0.9 (0.2-1.0) mg/dL AST 35 (10-42) IU/L ALT 39 (10-60) IU/L Alkaline Phosphatase 128 H (42-121) IU/L Total Protein 6.2 L (6.7-8.2) g/dL Albumin 3.7 (3.2-5.5) g/dL Globulin 2.5 (2.1-4.2) g/dL Albumin/Globulin Ratio 1.5 (1.0-2.2) Lipase 37 (22-51) U/L Urine Color Urine Clarity (CLEAR) Urine pH (5.0-7.5) PH Ur Specific Barlow (1.002-1.030) Urine Protein (NEGATIVE) mg/dL Urine Glucose (UA) (NEGATIVE) mg/dL Urine Ketones (NEGATIVE) mg/dL Urine Occult Blood (NEGATIVE) Urine Nitrite (NEGATIVE) Urine Bilirubin (NEGATIVE) Urine Urobilinogen (NORMAL) E.U./dL Ur Leukocyte Esterase (NEGATIVE) Ur Microscopic Review Urine Culture Comments Blood Type Antibody Screen - Diagnostic Imaging Results Diagnostic Imaging Results: positive: Other (ct 1 year ago. no diverticulosis.) Impression/Plan - Problem List Problem List: Gi bleed. Plan EGD today If normal plan bowel prep and colonoscopy likely tomorrow Parq held and consent obtained
--- NOTE | 2020-08-26 13:08 | ANESTHESIA ---
Pre-Anesthesia VS, & Labs - Diagnosis GI bleed - Procedure EGD Vital Signs: Temp Pulse Resp BP Pulse Ox 36.8 C 91 16 126/86 H 100 08/26/20 07:44 08/26/20 09:23 08/26/20 09:23 08/26/20 09:23 08/26/20 09:23 Height: 5 ft 5 in Weight (kg): 68 kg Body Mass Index: 24.9 BMI Classification: Healthy weight - NPO >8 hours - Is Patient ?: No - Lab Results Current Lab Results: Laboratory Tests 08/26/20 08:05: PT 12.3, INR 1.1 08/26/20 08:05: Blood Type O POSITIVE, Antibody Screen NEGATIVE 08/26/20 08:05: Sodium 137, Potassium 3.7, Chloride 105, Carbon Dioxide 21, Anion Gap 11.0, BUN 21 H, Creatinine 0.7, Estimated GFR (MDRD) 86 L, Glucose 135 H, Calcium 9.0, Total Bilirubin 0.9, AST 35, ALT 39, Alkaline Phosphatase 128 H, Total Protein 6.2 L, Albumin 3.7, Globulin 2.5, Albumin/Globulin Ratio 1.5, Lipase 37 08/26/20 08:05: WBC 9.6, RBC 3.75 L, Hgb 11.7 L, Hct 36.5 L, MCV 97.3, MCH 31.2 H, MCHC 32.1, RDW 14.2, Plt Count 213, MPV 9.4, Neut # (Auto) 7.6 H, Lymph # (Auto) 1.1 L, [facility] # (Auto) 0.8, Eos # (Auto) 0.0, Baso # (Auto) 0.1, Absolute Nucleated RBC 0.00, Nucleated RBC % 0.0 Lab results reviewed: Yes Fish Bones: 08/26/20 08:05 08/26/20 08:05 Home Medications and Allergies Home Medications: Ambulatory Orders Acetaminophen [Tylenol] 325 mg PO QID PRN 08/26/20 Gabapentin [Neurontin] 100 - 200 mg PO QPM 08/26/20 PARoxetine HCL [Paroxetine HCl] 40 mg PO DAILY 08/26/20 Trazodone HCl 100 mg PO QPM 08/26/20 Active Medications Acetaminophen (Tylenol) 650 mg PO Q4HR PRN PRN Reason: Pain 1 to 4 Last Admin: 08/26/20 10:50 Dose: 650 mg Documented by: Lactated Ringer's (Lr) 1,000 mls @ 100 mls/hr IV .Q10H MARGARET Last Admin: 08/26/20 10:50 Dose: 100 mls/hr Documented by: Ondansetron HCl (Zofran Inj) 4 mg IVP Q6HR PRN PRN Reason: Nausea / Vomiting Pantoprazole Sodium (Protonix) 40 mg IVP BID MARGARET Sodium Chloride (Normal Saline Flush 0.9%) 10 ml IVP PRN PRN PRN Reason: NEEDED PER PROVIDER ORDERS Last Admin: 08/26/20 10:50 Dose: 10 ml Documented by: Sodium Chloride (Normal Saline Flush 0.9%) 10 ml IVP 0100,0900,1700 MARGARET Acetaminophen [Tylenol] 325 mg PO QID PRN 08/26/20 Gabapentin [Neurontin] 100 - 200 mg PO QPM 08/26/20 PARoxetine HCL [Paroxetine HCl] 40 mg PO DAILY 08/26/20 Trazodone HCl 100 mg PO QPM 08/26/20 Allergies/Adverse Reactions: Allergies Allergy/AdvReac Type Severity Reaction Status Date / Time No Known Drug Allergies Allergy Verified 08/26/20 07:49 Anes History & Medical History - Anesthetic History Anesthesia Complications: reports: No previous complications Family history of Anesthesia Complications: Denies Family history of Malignant Hyperthermia: Denies - Medical History Cardiovascular: reports: None Pulmonary: reports: None Gastrointestinal: reports: GI bleed (no nausea since given Protonix in ER) Urinary: reports: None Neuro: reports: None Musculoskeletal: reports: Chronic back pain Endocrine/Autoimmune: reports: None Blood Disorders: reports: None Skin: reports: None Smoking Status: Smoker current status unk - Surgical History Gynecologic: Hysterectomy Exam General: Alert, Oriented x3, Cooperative, No acute distress Dental: Dentures full Upper Mouth Openin Fingerbreadth Neck Mobility: Normal Mallampati classification: I Respiratory: Lungs clear, Normal breath sounds, No respiratory distress, No accessory muscle use Cardiovascular: Regular rate, Normal S1, Normal S2, No murmurs Plan Anesthesia Type: MAC Consent for Procedure(s) Verified and Reviewed: Yes Code Status: Attempt Resuscitation ASA classification: 2-Mild systemic disease Is this case an emergency?: Yes
[2020-08-26 14:43] LABS: HGB - HEMOGLOBIN 10.3 g/dL (12.0-16.0)
--- NOTE | 2020-08-26 16:12 | ANESTHESIA POST OP EVALUATION ---
Anesthesia Post Eval - Post Anesthesia Eval Vitals: Last Vital Signs Temp 36.8 C 08/26/20 16:00 Pulse 95 08/26/20 16:00 Resp 20 08/26/20 16:00 BP 120/70 08/26/20 16:00 Pulse Ox 100 08/26/20 16:00 CV Function Including HR & BP: positive: Stable Pain Control: positive: Satisfactory Nausea & Vomiting: positive: Negative Mental Status: positive: Baseline Respiratory Status: Airway Patent Hydration Status: Satisfactory Anesthesia Complications: positive: None
[2020-08-26] MEDS: ONDANSETRON 4 MG/2 ML VIAL IVP PRN (16:40)
[2020-08-26] MEDS: SODIUM CHLORIDE FLUSH 0.9% 10 ML SYRINGE IVP SCH (18:50)
[2020-08-26] MEDS: PANTOPRAZOLE 40 MG VIAL IVP SCH (20:09)
[2020-08-26] MEDS: traZODone 50 MG TABLET PO SCH (20:09)
[2020-08-26] MEDS: GABAPENTIN 100 MG CAPSULE PO SCH (20:09)
[2020-08-26 22:08] LABS: HGB - HEMOGLOBIN 8.5 g/dL (12.0-16.0)
[2020-08-27] MEDS: SODIUM CHLORIDE FLUSH 0.9% 10 ML SYRINGE IVP SCH ×3 (00:37→16:01)
[2020-08-27] MEDS: ONDANSETRON 4 MG/2 ML VIAL IVP PRN ×2 (00:45→08:13)
[2020-08-27] MEDS: ACETAMINOPHEN 325 MG TABLET PO PRN ×5 (00:45→20:06)
[2020-08-27] MEDS: SODIUM CHLORIDE FLUSH 0.9% 10 ML SYRINGE IVP PRN (00:46)
[2020-08-27] MEDS: LACTATED RINGERS 1,000 ML IV SCH (04:44)
[2020-08-27 04:57] LABS: BASOPHILS % (AUTO) 0.8 %; EOSINOPHILS # (AUTO) 0.1 10^3/uL (0.0-0.7); EOSINOPHILS % (AUTO) 1.8 %; LYMPHOCYTES # (AUTO) 1.6 10^3/uL (1.5-3.5); LYMPHOCYTES % (AUTO) 32.2 %; MEAN CORPUSCULAR HEMOGLOBIN 31.4 pg (27.0-31.0); MEAN CORPUSCULAR HGB CONC 31.4 g/dL (32.0-36.0); MEAN PLATELET VOLUME 9.2 fL (7.9-10.8); MONOCYTES # (AUTO) 0.4 10^3/uL (0.0-1.0); NEUTROPHILS # (AUTO) 2.8 10^3/uL (1.5-6.6); NEUTROPHILS % (AUTO) 56.8 %; PLT - PLATELET COUNT 165 10^3/uL (130-450); RED BLOOD COUNT 2.87 10^6/uL (4.20-5.40)
[2020-08-27 05:03] LABS: CALCIUM 8.4 mg/dL (8.5-10.3); CREATININE 0.6 mg/dL (0.4-1.0)
[2020-08-27] MEDS: PANTOPRAZOLE 40 MG VIAL IVP SCH (08:09)
[2020-08-27] MEDS: PARoxetine 10 MG TABLET PO SCH (08:09)
[2020-08-27] MEDS ORDERED: CARBOXYMETHYLCELLULOSE OPHTH DROPS EACHEYE PRN (09:02)
[2020-08-27 12:28] LABS: HGB - HEMOGLOBIN 8.4 g/dL (12.0-16.0)
--- NOTE | 2020-08-27 13:19 | PROVIDER PROGRESS NOTE ---
Subjective - Prog Note Date Prog Note Date: 08/27/20 - Subjective Subjective: Reports having another bloody bowel movement this morning although his last blood appeared darker in nature. She does complain of some mild lower abdominal pain cramping. Reports no nausea or vomiting. Tolerating a full liquid diet. Current Medications - Current Medications Current Medications: Active Medications Acetaminophen (Tylenol) 650 mg PO Q4HR PRN PRN Reason: Pain 1 to 4 Last Admin: 08/27/20 14:01 Dose: 650 mg Documented by: Carboxymethylcellulose (Refresh 1% Ophth Drops) 1 drops EACHEYE PRN PRN PRN Reason: Dry Eye Last Admin: 08/27/20 09:10 Dose: 1 drops Documented by: Gabapentin (Neurontin) 100 mg PO QPM [facility] Last Admin: 08/26/20 20:09 Dose: 100 mg Documented by: Ondansetron HCl (Zofran Inj) 4 mg IVP Q6HR PRN PRN Reason: Nausea / Vomiting Last Admin: 08/27/20 08:13 Dose: 4 mg Documented by: Pantoprazole Sodium (Protonix) 40 mg IVP BID [facility] Last Admin: 08/27/20 08:09 Dose: 40 mg Documented by: Paroxetine HCl (Paxil) 40 mg PO DAILY [facility] Last Admin: 08/27/20 08:09 Dose: 40 mg Documented by: Sodium Chloride (Normal Saline Flush 0.9%) 10 ml IVP PRN PRN PRN Reason: NEEDED PER PROVIDER ORDERS Last Admin: 08/27/20 00:46 Dose: 10 ml Documented by: Sodium Chloride (Normal Saline Flush 0.9%) 10 ml IVP 0100,0900,1700 [facility] Last Admin: 08/27/20 08:09 Dose: 10 ml Documented by: Trazodone HCl (Desyrel) 100 mg PO QPM [facility] Last Admin: 08/26/20 20:09 Dose: 100 mg Documented by: Acetaminophen [Tylenol] 325 mg PO QID PRN 08/26/20 Gabapentin [Neurontin] 100 - 200 mg PO QPM 08/26/20 PARoxetine HCL [Paroxetine HCl] 40 mg PO DAILY 08/26/20 Trazodone HCl 100 mg PO QPM 08/26/20 Objective - Vital Signs/Intake & Output Reviewed Vital Signs: Yes Vital Signs: Vital Signs x48h Temp Pulse Pulse Resp BP Pulse Ox 08/27/20 11:29 36.5 C 85 16 98 08/27/20 08:05 36.5 C 85 98 H 112/67 18 L Intake & Output: Intake & Output 08/24/20 08/25/20 08/26/20 08/27/20 23:59 23:59 23:59 23:59 Intake Total 1910 1600 Output Total 300 200 Balance 1610 1400 - Objective General Appearance: positive: No acute distress, Alert Eyes Bilateral: positive: Normal inspection, Conjunctivae nml ENT: positive: ENT inspection nml Neck: positive: Nml inspection Respiratory: positive: No respiratory distress. negative: Wheezes, Rales Cardiovascular: positive: Regular rate & rhythm, No murmur. negative: Tachycardia, Systolic murmur Abdomen: positive: No distention, Tenderness (Mild lower abdominal tenderness.), Other (Umbilical hernia noted.). negative: Non-tender, Guarding, Rebound Skin: positive: Warm, Dry Extremities: positive: Full ROM, No pedal edema Neurologic/Psychiatric: positive: Motor nml - Lab Results Fish Bones: 08/27/20 12:25 08/27/20 04:30 Other Labs: Lab Results x24hrs 08/27/20 08/27/20 08/27/20 Range/Units 12:25 04:30 04:30 WBC 5.0 (4.8-10.8) x10^3/uL RBC 2.87 L (4.20-5.40) 10^6/uL Hgb 8.4 L 9.0 L (12.0-16.0) g/dL Hct 26.2 L 28.7 L (37.0-47.0) % MCV 100.0 H (81.0-99.0) fL MCH 31.4 H (27.0-31.0) pg MCHC 31.4 L (32.0-36.0) g/dL RDW 14.0 (12.0-15.0) % Plt Count 165 (130-450) 10^3/uL MPV 9.2 (7.9-10.8) fL Neut # (Auto) 2.8 (1.5-6.6) 10^3/uL Lymph # (Auto) 1.6 (1.5-3.5) 10^3/uL [place] # (Auto) 0.4 (0.0-1.0) 10^3/uL Eos # (Auto) 0.1 (0.0-0.7) 10^3/uL Baso # (Auto) 0.0 (0.0-0.1) 10^3/uL Absolute Nucleated RBC 0.00 x10^3/uL Nucleated RBC % 0.0 /100WBC Sodium 142 (135-145) mmol/L Potassium 3.9 (3.5-5.0) mmol/L Chloride 111 (101-111) mmol/L Carbon Dioxide 26 (21-32) mmol/L Anion Gap 5.0 L (6-13) BUN 19 (6-20) mg/dL Creatinine 0.6 (0.4-1.0) mg/dL Estimated GFR (MDRD) 102 (>89) Glucose 119 H (70-100) mg/dL Calcium 8.4 L (8.5-10.3) mg/dL Blood Type Recheck 08/26/20 08/26/20 08/26/20 Range/Units 22:00 14:36 14:36 WBC (4.8-10.8) x10^3/uL RBC (4.20-5.40) 10^6/uL Hgb 8.5 L 10.3 L (12.0-16.0) g/dL Hct 25.6 L 31.6 L (37.0-47.0) % MCV (81.0-99.0) fL MCH (27.0-31.0) pg MCHC (32.0-36.0) g/dL RDW (12.0-15.0) % Plt Count (130-450) 10^3/uL MPV (7.9-10.8) fL Neut # (Auto) (1.5-6.6) 10^3/uL Lymph # (Auto) (1.5-3.5) 10^3/uL [place] # (Auto) (0.0-1.0) 10^3/uL Eos # (Auto) (0.0-0.7) 10^3/uL Baso # (Auto) (0.0-0.1) 10^3/uL Absolute Nucleated RBC x10^3/uL Nucleated RBC % /100WBC Sodium (135-145) mmol/L Potassium (3.5-5.0) mmol/L Chloride (101-111) mmol/L Carbon Dioxide (21-32) mmol/L Anion Gap (6-13) BUN (6-20) mg/dL Creatinine (0.4-1.0) mg/dL Estimated GFR (MDRD) (>89) Glucose (70-100) mg/dL Calcium (8.5-10.3) mg/dL Blood Type Recheck O POSITIVE ABX Reporting Has patient been on IV antibiotics over the past 48 hours?: No Assessment/Plan - Problem List (1) Upper GI bleed Impression: EGD did not reveal an ulcer but the mucosa was quite friable and there was evidence of some oozing of blood. This is likely secondary to use of her NSAIDs. We will switch her PPI to oral and daily dosing. We will continue full liquid diet. Continue to avoid NSAIDs and this was discussed with the patient. (2) Acute blood loss anemia Impression: This is secondary to the upper GI bleed. She has continued to have some bleeding this morning this may just be old blood passing. Hemoglobin was rechecked this afternoon and is decreased compared to this morning. Given her bleeding this morning the decrease in hemoglobin, we will observe for 1 more night to ensure that there is no evidence of significant bleeding. If her hemoglobin is stable tomorrow then she can be discharged home. We will check one more hemoglobin this evening and tomorrow morning. (3) Panic attacks Impression: Stable. Continue Paxil. (4) Chronic back pain Impression: Stable. Continue gabapentin and Tylenol as needed. Continue outpatient follow- up with your primary care provider. Avoid NSAIDs. Qualifiers: Back pain location: low back pain (5) Umbilical hernia Impression: Stable. It is recommended that she follow-up with general surgery on outpatient basis. Qualifiers: Obstruction and gangrene presence: without obstruction or gangrene Qualified Code(s): K42.9 - Umbilical hernia without obstruction or gangrene
--- NOTE | 2020-08-27 14:10 | PROVIDER PROGRESS NOTE ---
Subjective - Prog Note Date Prog Note Date: 08/27/20 - Subjective Pt reports feeling: Improved (had a dark bm 7 am this morning. She is tolerating a liquid diet well. no evidence bleeding since) Objective - Vital Signs/Intake & Output Vital Signs: Vital Signs x48h Temp Pulse Pulse Resp BP Pulse Ox 08/27/20 11:29 36.5 C 85 16 98 08/27/20 08:05 36.5 C 85 98 H 112/67 18 L Intake & Output: Intake & Output 08/24/20 08/25/20 08/26/20 08/27/20 23:59 23:59 23:59 23:59 Intake Total 1910 1600 Output Total 300 200 Balance 1610 1400 - Objective General Appearance: positive: No acute distress, Alert Eyes Bilateral: positive: Normal inspection Respiratory: positive: No respiratory distress Abdomen: positive: Non-tender, No distention Neurologic/Psychiatric: positive: Oriented x3 - Lab Results Fish Bones: 08/27/20 12:25 08/27/20 04:30 Other Labs: Lab Results x24hrs 08/27/20 08/27/20 08/27/20 Range/Units 12:25 04:30 04:30 WBC 5.0 (4.8-10.8) x10^3/uL RBC 2.87 L (4.20-5.40) 10^6/uL Hgb 8.4 L 9.0 L (12.0-16.0) g/dL Hct 26.2 L 28.7 L (37.0-47.0) % MCV 100.0 H (81.0-99.0) fL MCH 31.4 H (27.0-31.0) pg MCHC 31.4 L (32.0-36.0) g/dL RDW 14.0 (12.0-15.0) % Plt Count 165 (130-450) 10^3/uL MPV 9.2 (7.9-10.8) fL Neut # (Auto) 2.8 (1.5-6.6) 10^3/uL Lymph # (Auto) 1.6 (1.5-3.5) 10^3/uL [place] # (Auto) 0.4 (0.0-1.0) 10^3/uL Eos # (Auto) 0.1 (0.0-0.7) 10^3/uL Baso # (Auto) 0.0 (0.0-0.1) 10^3/uL Absolute Nucleated RBC 0.00 x10^3/uL Nucleated RBC % 0.0 /100WBC Sodium 142 (135-145) mmol/L Potassium 3.9 (3.5-5.0) mmol/L Chloride 111 (101-111) mmol/L Carbon Dioxide 26 (21-32) mmol/L Anion Gap 5.0 L (6-13) BUN 19 (6-20) mg/dL Creatinine 0.6 (0.4-1.0) mg/dL Estimated GFR (MDRD) 102 (>89) Glucose 119 H (70-100) mg/dL Calcium 8.4 L (8.5-10.3) mg/dL Blood Type Recheck 08/26/20 08/26/20 08/26/20 Range/Units 22:00 14:36 14:36 WBC (4.8-10.8) x10^3/uL RBC (4.20-5.40) 10^6/uL Hgb 8.5 L 10.3 L (12.0-16.0) g/dL Hct 25.6 L 31.6 L (37.0-47.0) % MCV (81.0-99.0) fL MCH (27.0-31.0) pg MCHC (32.0-36.0) g/dL RDW (12.0-15.0) % Plt Count (130-450) 10^3/uL MPV (7.9-10.8) fL Neut # (Auto) (1.5-6.6) 10^3/uL Lymph # (Auto) (1.5-3.5) 10^3/uL [place] # (Auto) (0.0-1.0) 10^3/uL Eos # (Auto) (0.0-0.7) 10^3/uL Baso # (Auto) (0.0-0.1) 10^3/uL Absolute Nucleated RBC x10^3/uL Nucleated RBC % /100WBC Sodium (135-145) mmol/L Potassium (3.5-5.0) mmol/L Chloride (101-111) mmol/L Carbon Dioxide (21-32) mmol/L Anion Gap (6-13) BUN (6-20) mg/dL Creatinine (0.4-1.0) mg/dL Estimated GFR (MDRD) (>89) Glucose (70-100) mg/dL Calcium (8.5-10.3) mg/dL Blood Type Recheck O POSITIVE Assessment/Plan - Problem List (1) Acute blood loss anemia Impression: Agree with care and plan She should follow up in the surgery office She should consider colon cancer screening (3) Umbilical hernia Impression: Please have her follow up with me in the office to discuss umbilical hernia diagnosis and treatment options Qualifiers: Obstruction and gangrene presence: without obstruction or gangrene Qualifie d Code(s): K42.9 - Umbilical hernia without obstruction or gangrene (4) Upper GI bleed Impression: Agree with care and plan
[2020-08-27] MEDS: LORazepam 0.5 MG TABLET PO PRN (17:24)
[2020-08-27] MEDS: traZODone 50 MG TABLET PO SCH (20:06)
[2020-08-27] MEDS: GABAPENTIN 100 MG CAPSULE PO SCH (20:06)
[2020-08-27 20:15] LABS: HGB - HEMOGLOBIN 7.3 g/dL (12.0-16.0)
[2020-08-28] MEDS: ACETAMINOPHEN 325 MG TABLET PO PRN ×3 (02:22→13:47)
[2020-08-28] MEDS: LORazepam 0.5 MG TABLET PO PRN ×3 (02:22→23:53)
[2020-08-28] MEDS: SODIUM CHLORIDE FLUSH 0.9% 10 ML SYRINGE IVP SCH ×3 (02:32→19:18)
[2020-08-28 04:47] LABS: BASOPHILS % (AUTO) 0.8 %; HGB - HEMOGLOBIN 7.2 g/dL (12.0-16.0); MEAN CORPUSCULAR HEMOGLOBIN 31.4 pg (27.0-31.0); MEAN CORPUSCULAR HGB CONC 31.3 g/dL (32.0-36.0); MEAN CORPUSCULAR VOLUME 100.4 fL (81.0-99.0); MEAN PLATELET VOLUME 9.1 fL (7.9-10.8); MONOCYTES % (AUTO) 9.6 %; NEUTROPHILS % (AUTO) 49.6 %; PLT - PLATELET COUNT 129 10^3/uL (130-450); RED BLOOD COUNT 2.29 10^6/uL (4.20-5.40); RED CELL DISTRIBUTION WIDTH 13.9 % (12.0-15.0); WHITE BLOOD COUNT 2.5 x10^3/uL (4.8-10.8)
[2020-08-28 04:54] LABS: ABNORMAL LYMPHS % (MANUAL) 0 %; BAND NEUTROPHILS % (MANUAL) 0 %; CALCIUM 8.3 mg/dL (8.5-10.3); CREATININE 0.6 mg/dL (0.4-1.0)
[2020-08-28 05:48] LABS: LYMPHOCYTES # (MANUAL) 0.6 10^3/uL (1.5-3.5); LYMPHOCYTES % (MANUAL) 23 %; MONOCYTES # (MANUAL) 0.1 10^3/uL (0.0-1.0)
[2020-08-28 05:49] LABS: DIFFERENTIAL COMMENT MANUAL DIFFERENTIAL; PLATELET ESTIMATE, MANUAL NORMAL (130-450,000) (NORMAL)
[2020-08-28] MEDS: PANTOPRAZOLE 40 MG TABLET PO SCH (07:01)
[2020-08-28] MEDS: ONDANSETRON 4 MG/2 ML VIAL IVP PRN (07:48)
[2020-08-28] MEDS: PARoxetine 10 MG TABLET PO SCH (09:05)
[2020-08-28 13:43] LABS: HGB - HEMOGLOBIN 8.7 g/dL (12.0-16.0)
--- NOTE | 2020-08-28 14:52 | PROVIDER PROGRESS NOTE ---
Subjective - Prog Note Date Prog Note Date: 08/28/20 - Subjective Subjective: Hemoglobin has decreased to 7.2 this morning. She still has a few dark bowel movements. She has had 3-4 today. She is agreeable to a blood transfusion. She otherwise feels well. Current Medications - Current Medications Current Medications: Active Medications Acetaminophen (Tylenol) 650 mg PO Q4HR PRN PRN Reason: Pain 1 to 4 Last Admin: 08/28/20 13:47 Dose: 650 mg Documented by: Carboxymethylcellulose (Refresh 1% Ophth Drops) 1 drops EACHEYE PRN PRN PRN Reason: Dry Eye Last Admin: 08/27/20 09:10 Dose: 1 drops Documented by: Gabapentin (Neurontin) 100 mg PO QPM [facility] Last Admin: 08/27/20 20:06 Dose: 100 mg Documented by: Lorazepam (Ativan) 0.5 mg PO Q8H PRN PRN Reason: Anxiety Last Admin: 08/28/20 15:22 Dose: 0.5 mg Documented by: Ondansetron HCl (Zofran Inj) 4 mg IVP Q6HR PRN PRN Reason: Nausea / Vomiting Last Admin: 08/28/20 07:48 Dose: 4 mg Documented by: Pantoprazole Sodium (Protonix) 40 mg PO QDAC [facility] Last Admin: 08/28/20 07:01 Dose: 40 mg Documented by: Paroxetine HCl (Paxil) 40 mg PO DAILY [facility] Last Admin: 08/28/20 09:05 Dose: 40 mg Documented by: Sodium Chloride (Normal Saline Flush 0.9%) 10 ml IVP PRN PRN PRN Reason: NEEDED PER PROVIDER ORDERS Last Admin: 08/27/20 00:46 Dose: 10 ml Documented by: Sodium Chloride (Normal Saline Flush 0.9%) 10 ml IVP 0100,0900,1700 [facility] Last Admin: 08/28/20 07:50 Dose: 10 ml Documented by: Trazodone HCl (Desyrel) 100 mg PO QPM [facility] Last Admin: 08/27/20 20:06 Dose: 100 mg Documented by: Acetaminophen [Tylenol] 325 mg PO QID PRN 08/26/20 Gabapentin [Neurontin] 100 - 200 mg PO QPM 08/26/20 PARoxetine HCL [Paroxetine HCl] 40 mg PO DAILY 08/26/20 Trazodone HCl 100 mg PO QPM 08/26/20 Objective - Vital Signs/Intake & Output Reviewed Vital Signs: Yes Vital Signs: Vital Signs x48h Temp Pulse Pulse Resp BP BP Pulse Ox 08/28/20 12:53 36.9 C 99 20 101/72 08/28/20 10:16 36.9 C 80 18 91/47 L 08/28/20 10:10 79 18 96/50 L 08/28/20 10:05 81 18 96/58 L 08/28/20 09:56 36.7 C 85 18 106/53 L 08/28/20 07:44 37 C 98 18 107/74 98 Intake & Output: Intake & Output 08/25/20 08/26/20 08/27/20 08/28/20 23:59 23:59 23:59 23:59 Intake Total 1910 3448 1490 Output Total 300 200 1 Balance 1610 3248 1489 - Objective General Appearance: positive: No acute distress, Alert Eyes Bilateral: positive: Normal inspection, Conjunctivae nml ENT: positive: ENT inspection nml Neck: positive: Nml inspection Respiratory: positive: No respiratory distress. negative: Wheezes, Rales Cardiovascular: positive: Regular rate & rhythm, No murmur. negative: Tachycardia, Systolic murmur Abdomen: positive: No distention, Tenderness (Mild tenderness in lower abdomen.), Other (Umbilical hernia noted.). negative: Non-tender, Guarding, Rebound Skin: positive: Warm, Dry, Pallor Extremities: positive: Full ROM, No pedal edema Neurologic/Psychiatric: positive: Oriented x3, Motor nml - Lab Results Fish Bones: 08/28/20 13:32 08/28/20 04:35 Other Labs: Lab Results x24hrs 08/28/20 08/28/20 08/28/20 Range/Units 13:32 04:35 04:35 WBC 2.5 L (4.8-10.8) x10^3/uL RBC 2.29 L (4.20-5.40) 10^6/uL Hgb 8.7 L 7.2 L (12.0-16.0) g/dL Hct 26.7 L 23.0 L (37.0-47.0) % MCV 100.4 H (81.0-99.0) fL MCH 31.4 H (27.0-31.0) pg MCHC 31.3 L (32.0-36.0) g/dL RDW 13.9 (12.0-15.0) % Plt Count 129 L (130-450) 10^3/uL MPV 9.1 (7.9-10.8) fL Neut # (Auto) Not Reportable Lymph # (Auto) Not Reportable [place] # (Auto) Not Reportable Eos # (Auto) Not Reportable Baso # (Auto) Not Reportable Absolute Nucleated RBC Not Reportable Total Counted 100 Band Neuts % (Manual) 0 (0 - 10) % Abnorm Lymph % (Manual) 0 % Nucleated RBC % Not Reportable Neutrophils # (Manual) 1.8 (1.5-6.6) 10^3/uL Lymphocytes # (Manual) 0.6 L (1.5-3.5) 10^3/uL Monocytes # (Manual) 0.1 (0.0-1.0) 10^3/uL Eosinophils # (Manual) 0.0 (0-0.7) 10^3/uL Basophils # (Manual) 0.0 (0-0.1) 10^3/uL Differential Comment MANUAL DIFFERENTIAL Platelet Estimate NORMAL (130-450,000) (NORMAL) RBC Morph Micro Appear 1+ MACROCYTOSIS (NORMAL) Sodium 143 (135-145) mmol/L Potassium 4.0 (3.5-5.0) mmol/L Chloride 109 (101-111) mmol/L Carbon Dioxide 28 (21-32) mmol/L Anion Gap 6.0 (6-13) BUN 11 (6-20) mg/dL Creatinine 0.6 (0.4-1.0) mg/dL Estimated GFR (MDRD) 102 (>89) Glucose 120 H (70-100) mg/dL Calcium 8.3 L (8.5-10.3) mg/dL Blood Type Antibody Screen Crossmatch IS Only 08/27/20 08/26/20 Range/Units 19:55 08:05 WBC (4.8-10.8) x10^3/uL RBC (4.20-5.40) 10^6/uL Hgb 7.3 L (12.0-16.0) g/dL Hct 22.6 L (37.0-47.0) % MCV (81.0-99.0) fL MCH (27.0-31.0) pg MCHC (32.0-36.0) g/dL RDW (12.0-15.0) % Plt Count (130-450) 10^3/uL MPV (7.9-10.8) fL Neut # (Auto) Lymph # (Auto) [place] # (Auto) Eos # (Auto) Baso # (Auto) Absolute Nucleated RBC Total Counted Band Neuts % (Manual) (0 - 10) % Abnorm Lymph % (Manual) % Nucleated RBC % Neutrophils # (Manual) (1.5-6.6) 10^3/uL Lymphocytes # (Manual) (1.5-3.5) 10^3/uL Monocytes # (Manual) (0.0-1.0) 10^3/uL Eosinophils # (Manual) (0-0.7) 10^3/uL Basophils # (Manual) (0-0.1) 10^3/uL Differential Comment Platelet Estimate (NORMAL) RBC Morph Micro Appear (NORMAL) Sodium (135-145) mmol/L Potassium (3.5-5.0) mmol/L Chloride (101-111) mmol/L Carbon Dioxide (21-32) mmol/L Anion Gap (6-13) BUN (6-20) mg/dL Creatinine (0.4-1.0) mg/dL Estimated GFR (MDRD) (>89) Glucose (70-100) mg/dL Calcium (8.5-10.3) mg/dL Blood Type O POSITIVE Antibody Screen NEGATIVE Crossmatch IS Only See Detail ABX Reporting Has patient been on IV antibiotics over the past 48 hours?: No Assessment/Plan - Problem List (1) Upper GI bleed Impression: EGD revealed friable gastric mucosa with oozing of blood but no obvious ulcer. She continues to have dark bloody bowel movements which may just be old blood passing but her hemoglobin did decrease this morning. Her blood pressure remained relatively stable and she is not tachycardic. At this time, we will continue oral Protonix and a soft diet as tolerated. We will observe her 1 more night to ensure her hemoglobin stabilizes. She continues to have bleeding and hemoglobin drops, will discuss with general surgery regarding the need for possible repeat endoscopy or for a colonoscopy. Continue to avoid all NSAIDs. (2) Acute blood loss anemia Impression: Hemoglobin has decreased 7.2 this morning. She is agreeable to a blood transfusion and so we will give her 1 unit of packed red blood cell. Repeat this afternoon is up to 8.7 but she is still having dark bowel movements. We will observe for 1 more evening and if her bleeding subsides and her hemoglobin is stable a morning, she will likely be stable for discharge. (3) Panic attacks Impression: Stable. Continue Paxil and Ativan as needed. We will not discharge her on Ativan. (4) Chronic back pain Impression: Stable. Continue gabapentin and Tylenol as needed. Avoid all NSAIDs. Qualifiers: Back pain location: low back pain (5) Umbilical hernia Impression: Stable. She will follow up on outpatient basis with general surgery. Qualifiers: Obstruction and gangrene presence: without obstruction or gangrene Q ualified Code(s): K42.9 - Umbilical hernia without obstruction or gangrene
[2020-08-28] MEDS: traZODone 50 MG TABLET PO SCH (20:03)
[2020-08-28] MEDS: GABAPENTIN 100 MG CAPSULE PO SCH (20:03)
[2020-08-28 21:04] LABS: HGB - HEMOGLOBIN 7.9 g/dL (12.0-16.0)
[2020-08-29] MEDS: SODIUM CHLORIDE FLUSH 0.9% 10 ML SYRINGE IVP SCH ×2 (01:39→11:16)
[2020-08-29] MEDS: ACETAMINOPHEN 325 MG TABLET PO PRN ×2 (05:29→11:17)
[2020-08-29] MEDS: ONDANSETRON 4 MG/2 ML VIAL IVP PRN (05:30)
[2020-08-29] MEDS: SODIUM CHLORIDE FLUSH 0.9% 10 ML SYRINGE IVP PRN (05:32)
[2020-08-29 05:36] LABS: BASOPHILS % (AUTO) 0.8 %; EOSINOPHILS # (AUTO) 0.1 10^3/uL (0.0-0.7); EOSINOPHILS % (AUTO) 3.8 %; HGB - HEMOGLOBIN 8.4 g/dL (12.0-16.0); LYMPHOCYTES # (AUTO) 1.1 10^3/uL (1.5-3.5); LYMPHOCYTES % (AUTO) 30.7 %; MEAN CORPUSCULAR HEMOGLOBIN 31.1 pg (27.0-31.0); MEAN CORPUSCULAR HGB CONC 32.4 g/dL (32.0-36.0); MEAN CORPUSCULAR VOLUME 95.9 fL (81.0-99.0); MEAN PLATELET VOLUME 9.1 fL (7.9-10.8); MONOCYTES # (AUTO) 0.3 10^3/uL (0.0-1.0); MONOCYTES % (AUTO) 8.2 %; NEUTROPHILS # (AUTO) 2.1 10^3/uL (1.5-6.6); NEUTROPHILS % (AUTO) 56.2 %; PLT - PLATELET COUNT 151 10^3/uL (130-450); RED CELL DISTRIBUTION WIDTH 15.3 % (12.0-15.0); WHITE BLOOD COUNT 3.7 x10^3/uL (4.8-10.8)
[2020-08-29 05:45] LABS: CALCIUM 8.3 mg/dL (8.5-10.3); CREATININE 0.5 mg/dL (0.4-1.0)
[2020-08-29 10:13] LABS: EOSINOPHILS # (AUTO) 0.1 10^3/uL (0.0-0.7); EOSINOPHILS % (AUTO) 2.3 %; HGB - HEMOGLOBIN 8.3 g/dL (12.0-16.0); LYMPHOCYTES # (AUTO) 0.8 10^3/uL (1.5-3.5); MEAN CORPUSCULAR HEMOGLOBIN 30.7 pg (27.0-31.0); MEAN CORPUSCULAR HGB CONC 31.4 g/dL (32.0-36.0); MEAN CORPUSCULAR VOLUME 97.8 fL (81.0-99.0); MEAN PLATELET VOLUME 8.6 fL (7.9-10.8); MONOCYTES # (AUTO) 0.3 10^3/uL (0.0-1.0); MONOCYTES % (AUTO) 7.6 %; NEUTROPHILS # (AUTO) 2.7 10^3/uL (1.5-6.6); NEUTROPHILS % (AUTO) 67.6 %; PLT - PLATELET COUNT 151 10^3/uL (130-450); RED CELL DISTRIBUTION WIDTH 15.4 % (12.0-15.0)
[2020-08-29] MEDS: PARoxetine 10 MG TABLET PO SCH (11:15)
[2020-08-29] MEDS: PANTOPRAZOLE 40 MG TABLET PO SCH (11:15)
[2020-08-29] MEDS: LORazepam 0.5 MG TABLET PO PRN (11:16)
[2020-08-29] MEDS ORDERED: ACETAMINOPHEN/CODEINE 300 MG/30 MG TABLET PO PRN (11:34)
[2020-08-29] MEDS ORDERED: FERROUS GLUCONATE 324 MG TABLET PO SCH (12:00)
--- NOTE | 2020-08-29 12:21 | Discharge Plan ---
Discharge Plan Problem Reviewed?: Yes Disposition: Home, Self Care Condition: Stable Prescriptions: Acetaminophen/Cod 300/30 [Tylenol #3] 1 tab PO Q6HR PRN #12 tablet PRN Reason: Severe Pain LORazepam [Ativan] 0.5 mg PO Q8H PRN #15 tablet PRN Reason: Anxiety Ferrous Gluconate [Fergon] 324 mg PO DAILYWM #30 tablet Pantoprazole [Protonix] 40 mg PO BID #60 tablet Diet: Soft Activity Restrictions: Activity as Tolerated Shower Restrictions: No Driving Restrictions: No Instruction Topics: Bleeding Gastrointestinal Health Concerns: You were hospitalized due to upper GI bleeding caused by using Non-steroidal anti-inflammatory medicine for treating your chronic back pain. The EGD done by showed friable gastric mucosa and oozing, and your MIKE test came back negative, which checks for bacterial cause for peptic ulcers. You are being sent home on new iron tablets to build up your blood and on new Protonix for healing the gastric bleeding. You should stay away from spicy, and acidic food or very sharp and crispy foods. You are being sent home with a new prescription for Tylenol and codeine for t reating pain. Do not use Ibuprofen, Motrin, Naprosyn or other NSAIDs to treat your pain. All new prescriptions and the refill for Ativan [facility] [place]. Please resume all your other prehospital medications. You should see your PCP in 5 to 10 days for a recheck of your anemia and hospital follow-up visit. Plan of Treatment: As above. Care Goals: Improvement in symptoms and stabilization are the goals. Assessment: The patient understands and is agreeable with the plan. Additional Instructions or Follow Up instructions: If you have new or worsening symptoms, call your PCP for advice or come to the ER. No Smoking: If you smoke, Please STOP! Call for help. Follow-up with: Christo Romero MD [Primary Care Provider] -
--- NOTE | 2020-08-29 12:28 | DISCHARGE SUMMARY ---
Discharge Summary Admit Date: 08/26/20 Discharge Date: 08/29/20 Discharging Provider: Dr Tamiko Ferrera Primary Care Provider: Dr Christo Romero Code Status: Attempt Resuscitation Condition at Discharge: Stable Discharge Disposition: 01 Home, Self Care - [facility] History of Present Illness: From the admission H&P of Dr. Michael Mariscal: This is a 60-year-old female with a past medical history significant for panic attacks and chronic back pain who presents today after she had coffee ground emesis that began yesterday morning. She states this persisted throughout the day and today she sought medical attention. She noted her stool yesterday was dark and tarry although today her stool was more maroon-colored. She reports associated epigastric pain and heartburn that began after the hematemesis. No chest pain or dyspnea. She denies any fevers but has felt some chills. She feels like she has become more lightheaded and dizzy today. She has been taking Aleve almost every other day for the past year for chronic back pain. Denies any other NSAID use. She did try a baby aspirin today to help alleviate her back pain. She is not on any anticoagulation. She believes she may have had a colonoscopy or endoscopy many years ago but she cannot recall. She also believes she may have had a similar bleeding episode in her early 40s. She reports taking 4 alcoholic beverages a week. No prior history of abdominal surgeries. In the emergency department, she was found to be afebrile in the picture of 36.8 C. Her heart is 114. Her blood pressure is 138/81. She is not tachypneic and saturating well on room air. Her initial hemoglobin was 11.7. Her labs otherwise unremarkable. The emergency department provider spoke with the on- call surgeon who recommended placing her in Observation status for endoscopy. Hospitalist was then consulted for admission. She did receive Protonix IV in the emergency department. - HOSPITAL COURSE Hospital Course: (1) Upper GI bleed EGD revealed friable gastric mucosa with oozing of blood but no obvious ulcer. A MIKE test returned neg. Biopsies were taken. She continued to have dark bloody bowel movements which was likely old blood passing through, and her hemoglobin did decrease, although her blood pressure remained stable and she was not tachycardic. She was started on oral Protonix and a soft diet. She was discharged on Protonix 40 mg bid for 4-6 weeks, a bland diet and is to see general surgery regarding a repeat endoscopy or for a colonoscopy. Continue was instructed to avoid all NSAIDs. (2) Acute blood loss anemia Hemoglobin decreased to 7.2 and she received 1U of blood transfused. The Hgb was 8.3 at discharge, and she was discharged on oral Iron replacement therapy. (3) Panic attacks Stable. Continued Paxil and Ativan as needed. (4) Chronic back pain Stable. Continued gabapentin and Tylenol as needed. Avoid all NSAIDs going forward. (5) Umbilical hernia Stable. She will follow up on outpatient basis with general surgery. - ALLERGIES Allergies/Adverse Reactions: Allergies Allergy/AdvReac Type Severity Reaction Status Date / Time No Known Drug Allergies Allergy Verified 08/26/20 07:49 - MEDICATIONS Home Medications: Ambulatory Orders Medication Instructions Recorded Confirmed Acetaminophen [Tylenol] 325 mg PO QID PRN 08/26/20 08/26/20 Gabapentin [Neurontin] 100 - 200 mg PO QPM 08/26/20 08/26/20 PARoxetine HCL [Paroxetine HCl] 40 mg PO DAILY 08/26/20 08/26/20 Trazodone HCl 100 mg PO QPM 08/26/20 08/26/20 Acetaminophen/Cod 300/30 [Tylenol 1 tab PO Q6HR PRN #12 tablet 08/29/20 #3] Ferrous Gluconate [Fergon] 324 mg PO DAILYWM #30 tablet 08/29/20 LORazepam [Ativan] 0.5 mg PO Q8H PRN #15 tablet 08/29/20 Pantoprazole [Protonix] 40 mg PO BID #60 tablet 08/29/20 - PHYSICAL EXAM AT DISCHARGE General Appearance: positive: No acute distress, Alert Eyes Bilateral: positive: Normal inspection, EOMI ENT: positive: ENT inspection nml, No signs of dehydration Neck: positive: Nml inspection, No JVD Respiratory: positive: No respiratory distress Cardiovascular: positive: Regular rate & rhythm, No murmur Abdomen: positive: Non-tender, No distention Skin: positive: Warm, Dry, Pallor Extremities: positive: Non-tender, No pedal edema - LABS Result Diagrams: 08/29/20 10:08 08/29/20 05:12 - DIAGNOSTIC IMAGING Diagnostic Imaging Results: Final report reviewed - FOLLOW UP Follow Up: See PCP in 1-2 weeks for hospital follow-up and CBC check. See General Surgery () in 4-6 weeks. - TIME SPENT Time Spent in Discharge (Minutes): 30
[2020-08-29 12:47] VITALS: BP 116/69
== END 2020-08-29 13:01 | disposition home or self-care (01) | DRG 378 ==
LOC: ED 07:41 → MS3 09:33 → OBSVTOIN 08-28 14:52
PROVIDERS: ADMIT Internal Medicine; ATTEND Internal Medicine
PROC: 0DB48ZX Excision of Esophagogastric Junction, Via Natural or Artificial Opening Endoscopic, Diagnostic (ICD-10-PCS; principal; 2020-08-28)
PROC: 0DB68ZX Excision of Stomach, Via Natural or Artificial Opening Endoscopic, Diagnostic (ICD-10-PCS; 2020-08-28)
DX: K92.2 Gastrointestinal hemorrhage, unspecified (principal); D62 Acute posthemorrhagic anemia; T39.315A Adverse effect of propionic acid derivatives, initial encounter; Y92.009 Unspecified place in unspecified non-institutional (private) residence as the place of occurrence of the external cause; F41.0 Panic disorder [episodic paroxysmal anxiety]; G89.29 Other chronic pain; M54.9 Dorsalgia, unspecified; K42.9 Umbilical hernia without obstruction or gangrene; F17.210 Nicotine dependence, cigarettes, uncomplicated; Z79.899 Other long term (current) drug therapy
CPT/HCPCS: 36415; 36430; 80048; 80053; 81003; 83690; 85014; 85018; 85025; 85610; 86850; 86900; 86901; 86920; 87081; 96374; 96375; 96376; 99284; 99285; A9270; G0378; J7120; P9016; 81001; 87086

== ENCOUNTER 2022-05-26 08:00 | Outpatient (CLI) | payer OTHER ==
[2022-05-27 00:18] LABS: BACTERIAL VAGINOSIS DNA NEGATIVE (NEGATIVE)
[2022-05-27 00:19] LABS: CANDIDA KRUSEI DNA INDETERMINATE ERROR (NEGATIVE); TRICHOMONAS VAGINALIS DNA INDETERMINATE ERROR (NEGATIVE)
[2022-05-27 00:20] LABS: CANDIDA GLABRATA DNA INDETERMINATE ERROR (NEGATIVE); CANDIDA GROUP DNA INDETERMINATE ERROR (NEGATIVE)
== END 2022-05-26 23:59 | disposition home or self-care (01) ==
LOC: LAB.S 08:00
PROVIDERS: ATTEND Registered Nurse
DX: R30.0 Dysuria (principal); R10.2 Pelvic and perineal pain
CPT/HCPCS: 81514; 87086; 87181

== ENCOUNTER 2022-06-01 08:00 | Outpatient (CLI) | payer OTHER ==
[2022-06-02 02:53] LABS: BACTERIAL VAGINOSIS DNA NEGATIVE (NEGATIVE)
[2022-06-02 02:55] LABS: CANDIDA GLABRATA DNA UNRESOLVED (NEGATIVE); CANDIDA GROUP DNA UNRESOLVED (NEGATIVE); CANDIDA KRUSEI DNA UNRESOLVED (NEGATIVE); TRICHOMONAS VAGINALIS DNA UNRESOLVED (NEGATIVE)
== END 2022-06-01 23:59 | disposition home or self-care (01) ==
LOC: LAB.S 08:00
PROVIDERS: ATTEND Physician Assistant Medical
DX: R10.2 Pelvic and perineal pain (principal); B37.3 Candidiasis of vulva and vagina
CPT/HCPCS: 81514

== ENCOUNTER 2023-05-12 08:14 | Emergency (ER) | payer MEDICAID ==
--- NOTE | 2023-05-12 09:49 | ED Physician Documentation ---
PD HPI NVD - Stated complaint Stated Complaint: PX,NAUSEA,ABD PX - Chief complaint Chief Complaint: General - History obtained from History obtained from: Patient - History of Present Illness Timing - onset: Last night Timing - details: Abrupt onset. No: Still present (onset of nausea and vomiting last evening with multiple emeses. Initially bilious and then noted some rust c olor/coffee ground appearance. No jessi blood. overnight had softer small volume stool that appeared dark. No peptobismol or such. No abd pain this morning.) Associated symptoms: Melena (possibly - she noted small volume dark stool overnight.). No: Fever, Near syncope / syncope Contributing factors: Sick contact (she states her had a day of vomiting/diarrhea about 5-6 days ago and resolved.). No: Bad food, Travel, Recent antibiotics Improved by: Vomiting. 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 Healing okay with just small residual scab at upper end. No redness nor drainage. 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 - Present Medications Home Medications: Ambulatory Orders Medication Instructions Recorded Confirmed Acetaminophen [Tylenol] 325 mg PO QID PRN 08/26/20 08/26/20 Gabapentin [Neurontin] 100 - 200 mg PO QPM 08/26/20 08/26/20 PARoxetine HCL [Paroxetine HCl] 40 mg PO DAILY 08/26/20 08/26/20 Trazodone HCl 100 mg PO QPM 08/26/20 08/26/20 Acetaminophen/Cod 300/30 [Tylenol 1 tab PO Q6HR PRN #12 tablet 08/29/20 #3] Ferrous Gluconate [Fergon] 324 mg PO DAILYWM #30 tablet 08/29/20 LORazepam [Ativan] 0.5 mg PO Q8H PRN #15 tablet 08/29/20 Pantoprazole [Protonix] 40 mg PO BID #60 tablet 08/29/20 Famotidine [Pepcid] 20 mg PO DAILY #20 tablet 05/12/23 Ondansetron Odt [Zofran] 4 mg TL Q6H PRN #10 tablet 05/12/23 - Allergies Allergies/Adverse Reactions: Allergies Allergy/AdvReac Type Severity Reaction Status Date / Time No Known Drug Allergies Allergy Verified 08/26/20 07:49 - Social History Does the pt smoke?: No Smoking Status: Smoker current status unk Does the pt drink ETOH?: Yes Does the pt have substance abuse?: No - Immunizations Immunizations are current?: Yes - POLST Patient has POLST: No PD ED PE NORMAL - Vitals Vital signs reviewed: Yes - General General: Alert and oriented X 3, No acute distress, Well developed/nourished - Neck Neck: Supple, no meningeal sign, No adenopathy - Cardiac Cardiac: RRR, No murmur - Respiratory Respiratory: No respiratory distress, Clear bilaterally - Abdomen Abdomen: Normal bowel sounds, Soft, Non tender, Non distended - Derm Derm: Normal color, Warm and dry - Extremities Extremities: Other (right anterior shoulder with healing surgical scar. There is small 2-3 mm scab at uppper end without signs of infection.) - Neuro Neuro: Alert and oriented X 3, No motor deficit, No sensory deficit Results - Vitals Vitals: Vital Signs - 24 hr 05/12/23 05/12/23 08:26 10:09 Temperature 35.8 C L Heart Rate 66 63 Respiratory 15 17 Rate Blood Pressure 159/92 H 157/81 H O2 Saturation 100 98 Oxygen O2 Source Room air - Labs Labs: Laboratory Tests 05/12/23 05/12/23 10:18 10:18 WBC 5.7 RBC 4.67 Hgb 12.3 Hct 38.5 MCV 82.4 MCH 26.3 L MCHC 31.9 L RDW 16.8 H Plt Count 192 MPV 9.2 Neut # (Auto) 4.4 Lymph # (Auto) 0.6 L [place] # (Auto) 0.6 Eos # (Auto) 0.0 Baso # (Auto) 0.0 Absolute Nucleated RBC 0.00 Nucleated RBC % 0.0 Sodium 135 Potassium 3.8 Chloride 96 L Carbon Dioxide 29 Anion Gap 10.0 BUN 14 Creatinine 0.7 Estimated GFR (MDRD) 85 L Glucose 121 H Calcium 11.2 H PD Medical Decision Making - ED course Complexity details: considered differential, d/w patient ED course: blood count is good and vitals. She is not having much stool out, so if is having gastric bleeding, does not seem large volume. She did not have need for BM here even with attempt on toilet. I deferred rectal exam, as even if presuming some upper GI bleeding, is stable and can treat as if it were some gastritis with bleeding. She avoids NSAIDs due to prior GI bleeding in past. no anticoagulants. Her shoulder surgical wound is well healing with a small 2-3 mm scab still on upper end. No redness nor discharge. Rest is sealed and healing. Patient is safe for discharge. I talked with her about it and treating as gastritis with follow up with PMD in few days for recheck, repeat blood count, and if concerned could consider EGD. Departure - Departure Disposition: 01 Home, Self Care Clinical Impression: Nausea and vomiting Qualifiers: Vomiting type: unspecified Qualified Code(s): R11.2 - Nausea with vomiting, unspecified Gastritis, acute Qualifiers: Gastritis type: unspecified gastritis Gastritis bleeding: with bleeding Qualified Code(s): K29.01 - Acute gastritis with bleeding Condition: Stable Record reviewed to determine appropriate education?: Yes Instructions: ED Gastritis, ED Nausea Vomiting Prescriptions: Famotidine [Pepcid] 20 mg PO DAILY #20 tablet Ondansetron Odt [Zofran] 4 mg TL Q6H PRN #10 tablet PRN Reason: Nausea / Vomiting Comments: Its unclear the cause of your nausea and vomiting. It may have been a viral illness or sometimes food irritation. It is good that you are feeling less nauseous this morning. I wrote for some Zofran/ondansetron if needed for persistent nausea today tomorrow. Your blood count is good at this point and your vital signs are good. Even if we assume some bleeding in the stomach, with you blood count and such being good, would still at this point just see if it was a brief irritation related to the vomiting. I would suggest adding famotidine acid reducing medicine along with some antacid such as Maalox or Mylanta a few times a day. The famotidine twice a day for the next week or 2. Do not use Pepto-Bismol as that can turn your stools dark-colored and you will be deceiving. Otherwise I would see how you do with regard to nausea and any very persistent vomiting and then watch your stools over the next couple of days and see if there is any blackness to it and if so if it decreases and resolves. Follow-up or return to the ER if you have repetitive vomiting or any vomiting and your blood in your vomit. General or increasing abdominal pain, persistent dark stool or any visible bloody stool, lightheadedness or other concerns. Otherwise if you are feeling well over the next couple of days and no further follow-up or testing needed. Discharge Date/Time: 05/12/23 11:24
[2023-05-12] MEDS ORDERED: FAMOTIDINE 20 MG TABLET PO STA (10:08)
[2023-05-12] MEDS ORDERED: MAG HYDROX/AL HYDROX/SIMETH 30 ML UDC PO STA (10:09)
[2023-05-12 10:17] VITALS: BP 157/81
[2023-05-12 10:23] LABS: BASOPHILS % (AUTO) 0.5 %; EOSINOPHILS % (AUTO) 0.2 %; HCT - HEMATOCRIT 38.5 % (37.0-47.0); HGB - HEMOGLOBIN 12.3 g/dL (12.0-16.0); LYMPHOCYTES # (AUTO) 0.6 10^3/uL (1.5-3.5); LYMPHOCYTES % (AUTO) 10.7 %; MEAN CORPUSCULAR HEMOGLOBIN 26.3 pg (27.0-31.0); MEAN CORPUSCULAR HGB CONC 31.9 g/dL (32.0-36.0); MEAN CORPUSCULAR VOLUME 82.4 fL (81.0-99.0); MEAN PLATELET VOLUME 9.2 fL (7.9-10.8); MONOCYTES # (AUTO) 0.6 10^3/uL (0.0-1.0); MONOCYTES % (AUTO) 10.9 %; NEUTROPHILS # (AUTO) 4.4 10^3/uL (1.5-6.6); NEUTROPHILS % (AUTO) 77.5 %; PLT - PLATELET COUNT 192 10^3/uL (130-450); RED BLOOD COUNT 4.67 10^6/uL (4.20-5.40); RED CELL DISTRIBUTION WIDTH 16.8 % (12.0-15.0); WHITE BLOOD COUNT 5.7 x10^3/uL (4.8-10.8)
[2023-05-12 10:35] LABS: CALCIUM 11.2 mg/dL (8.5-10.3); CREATININE 0.7 mg/dL (0.4-1.0); POTASSIUM 3.8 mmol/L (3.5-5.0)
== END 2023-05-12 11:24 | disposition home or self-care (01) ==
LOC: ED 08:14
DX: K29.00 Acute gastritis without bleeding (principal); Z79.899 Other long term (current) drug therapy
CPT/HCPCS: 36415; 80048; 85025; 99283; A9270

== ENCOUNTER 2023-09-30 20:02 | Emergency (ER) | payer MEDICAID ==
[2023-09-30 20:15] VITALS: BP 137/74; O2SAT 96
--- NOTE | 2023-09-30 20:20 | ED Physician Documentation ---
History of Present Illness - Stated complaint Stated Complaint: HEAD PX - Chief complaint Chief Complaint: Wound - Additonal information Additional information: She felt a bump on the back of her occiput about 2 weeks ago and she scratched a t it. Over time an ulceration has formed. Her daughter has shaved the back of her head but they are applying rubbing alcohol and Betadine to it. Over the last several days she has developed some surrounding redness. Reports tetanus is up-to-date. 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 - Present Medications Home Medications: Ambulatory Orders Medication Instructions Recorded Confirmed Acetaminophen [Tylenol] 325 mg PO QID PRN 08/26/20 08/26/20 Gabapentin [Neurontin] 100 - 200 mg PO QPM 08/26/20 08/26/20 PARoxetine HCL [Paroxetine HCl] 40 mg PO DAILY 08/26/20 08/26/20 Trazodone HCl 100 mg PO QPM 08/26/20 08/26/20 Acetaminophen/Cod 300/30 [Tylenol 1 tab PO Q6HR PRN #12 tablet 08/29/20 #3] Ferrous Gluconate [Fergon] 324 mg PO DAILYWM #30 tablet 08/29/20 LORazepam [Ativan] 0.5 mg PO Q8H PRN #15 tablet 08/29/20 Pantoprazole [Protonix] 40 mg PO BID #60 tablet 08/29/20 Famotidine [Pepcid] 20 mg PO DAILY #20 tablet 05/12/23 Ondansetron Odt [Zofran] 4 mg TL Q6H PRN #10 tablet 05/12/23 Doxycycline Hyclate 100 mg PO BID #14 cap 09/30/23 - Allergies Allergies/Adverse Reactions: Allergies Allergy/AdvReac Type Severity Reaction Status Date / Time No Known Drug Allergies Allergy Verified 09/30/23 20:07 - Social History Does the pt smoke?: No Smoking Status: Never smoker Does the pt drink ETOH?: Yes Does the pt have substance abuse?: No - Immunizations Immunizations are current?: Yes - POLST Patient has POLST: No PD ED PE EXPANDED - Derm Derm: Other (Shallow 1 cm ulceration on the posterior occiput with a white eschar. Mild amount of surrounding erythema about 2 cm in circumference surrounding. No active drainage.) Results - Vitals Vitals: Vital Signs - 24 hr 09/30/23 20:07 Temperature 36.5 C Heart Rate 66 Respiratory 16 Rate Blood Pressure 137/74 H O2 Saturation 96 Oxygen O2 Source Room air PD Medical Decision Making - ED course Complexity details: d/w patient ED course: She had a bump on the back of her head about 2 weeks ago that she scratched and subsequently shallow ulceration has formed. She reports her daughter has been applying Betadine and rubbing alcohol to it and the wound is not healing. She now has some mild surrounding erythema suggestive of cellulitis. I advised the patient to stop using Betadine and alcohol. Making the recommendation to use Betadine over the wound and she will be started on doxycycline for antibiotic treatment of the cellulitis. Clinically this is midline. It does not appear to be consistent with a carbuncle. Lesion and history is also not suggestive of varicella. Routine wound care and the usual emergent return precautions were discussed for worsening symptoms. Departure - Departure Disposition: 01 Home, Self Care Clinical Impression: Scalp lesion, Cellulitis of scalp Condition: Stable Record reviewed to determine appropriate education?: Yes Prescriptions: Doxycycline Hyclate 100 mg PO BID #14 cap Comments: You most likely got an ingrown hair or boil that subsequently ruptured. You now have a ulcer on the back of your head. The management by applying rubbing alcohol and Betadine to it is limiting the ability of the wound to heal. In general you can shower normally and simply apply small amount of antibiotic ointment such as bacitracin to the wound. You do have some surrounding redness suggestive of skin infections will start you on an antibiotic called doxycycline. With this treatment I would expect the symptoms to be getting better over the next week or so. If you find that the wound is not healing, you develop fevers or have increasing redness beyond the current zone then please return to the ER for repeat evaluation.
== END 2023-09-30 20:25 | disposition home or self-care (01) ==
LOC: ED 20:02
DX: L03.811 Cellulitis of head [any part, except face] (principal)
CPT/HCPCS: 99282; 99283